=== PATIENT | female | born 1955 | race Caucasian/White ===

== ENCOUNTER 2019-11-07 21:41 | Inpatient (IN) | payer MEDICARE, SELFPAY ==
--- NOTE | ~2019-11-07 | XR_ITS ---
EXAMINATION: XR abdomen NG/feed tube rechec DATE: 11/08/2019 01:16 INDICATION: Nasogastric tube placement. TECHNIQUE: An upright view of the abdomen was obtained. COMPARISON: Abdomen single view at 12:21 AM FINDINGS: The lower abdomen is excluded. There are multiple dilated loops of small bowel. The nasogas tric tube tip is in the hiatal hernia above the diaphragm. IMPRESSION: 1. Nasogastric tube tip in a hiatal hernia above the diaphragm. 2. Small bowel obstruction. Reviewed, dictated and finalized at location A.
--- NOTE | ~2019-11-07 | XR_ITS ---
EXAMINATION: XR abdomen NG/feed tube insert DATE: 11/08/2019 00:21 INDICATION: Nasogastric tube placement. TECHNIQUE: An upright view of the abdomen was obtained. COMPARISON: CT abdomen and pelvis 11/07/2019 FINDINGS: The lower abdomen is excluded. There are multiple dilated loops of small bowel. The nasogas tric tube tip is in a hiatal hernia above the diaphragm. IMPRESSION: 1. Nasogastric tube tip in a hiatal hernia above the diaphragm. 2. Small bowel obstruction. Reviewed, dictated and finalized at location A.
--- NOTE | ~2019-11-07 | XR_ITS ---
EXAMINATION: XR abdomen obstructive series DATE: 11/08/2019 05:52 INDICATION: Small bowel obstruction. TECHNIQUE: Upright and supine views of the abdomen were obtained. COMPARISON: CT abdomen and pelvis 11/07/2019 FINDINGS: There are multiple dilated loops of small bowel. There is a small volume of stool in the co marianela, which is normal in caliber. No free intraperitoneal gas. The nasogastric tube tip is in a hiatal hernia above the diaphragm. There is a right hip arthroplasty. IMPRESSION: 1. Persistently dilated small bowel, consistent with small bowel obstruction. 2. Nasogastric tube tip in a hiatal hernia above the diaphragm. Reviewed, dictated and finalized at location A.
--- NOTE | ~2019-11-07 | XR_ITS ---
EXAMINATION: XR fl guid NG/feed tube insert DATE: 11/08/2019 09:43 INDICATION: Small bowel obstruction. TECHNIQUE: I adjusted the nasogastric tube under fluoroscopic guidance. One fluoroscopic image was ob tained. The fluoroscopy exposure time was 6.8 minutes. The dose area product was 13.566 Gy-cm^2. COMPARISON: CT abdomen and pelvis 11/07/2019 FINDINGS: There is a large hiatal hernia. The nasogastric tube tip is in the hiatal hernia above the diaphragm. IMPRESSION: 1. Large hiatal hernia with nasogastric tube tip in the hiatal hernia above the diaphragm. I was not able to pass the nasogastric tube beyond the diaphragm. Reviewed, dictated and finalized at location A.
--- NOTE | ~2019-11-07 | XR_ITS ---
XR abdomen/kub 1V 11/11/2019 13:36 Indication: Abdomen pain. Postop. Procedure: KUB Comparison: Comparison to multiple prior studies sequentially, with oldest reviewed study dated 01/15. Findings: NG tube in the stomach. There are mildly dilated small bowel loops in the central aspect of the abdomen. There is laparotomy staple line. No renal stones identified. There are pelvic phlebolit hs. There is a right hip arthroplasty. Impression: 1: Mildly dilated small bowel loops centrally, most likely postoperative ileus. Reviewed, dictated and finalized at location A. Impression: 1: Mildly dilated small bowel loops centrally, most likely postoperative ileus.
--- NOTE | ~2019-11-07 | CT_ITS ---
EXAMINATION: CT abdomen pelvis w con DATE: 11/13/2019 16:00 INDICATION: Abdominal pain. Nausea and vomiting. TECHNIQUE: Computed tomography (CT) of the abdomen and pelvis was performed with 100 mL Omnipaque 350 intravenous contrast. Automated exposure control and iterative reconstruction technique were employe d. The dose-length product was 275.51 mGy-cm. COMPARISON: CT abdomen and pelvis 11/07/2019 FINDINGS: The visualized portions of the lung bases demonstrate small pleural effusions. There is mil d dependent atelectasis bilaterally. The heart size is normal. There is a small pericardial effusion. There is a large sliding hiatal hernia. The nasogastric tube tip is in the body of the stomach below the diaphragm. There are cysts in the liver measuring up to 1.1 cm. There is a 3.6 cm mass in left h epatic lobe with interrupted peripheral puddling of contrast, consistent with a hemangioma. The gallb ladder is normal in size and contains a stone. The spleen is normal. Pancreas divisum is noted. The a drenal glands and kidneys are normal. There is wall thickening throughout the colon and involving mos t of the small bowel. The wall thickening is worst involving the small bowel proximal to the anastomo sis. There are some dilated loops of small bowel without focal transition point. There are no patholo gically enlarged lymph nodes. There is a small volume of ascites. There is a right hip arthroplasty. There is lumbar levocurvature and severe spondylosis. IMPRESSION: 1. Dilated small bowel without focal transition point, consistent with adynamic ileus. 2. Wall thickening of small and large bowel, worst proximal to the small bowel anastomosis, consisten t with edema and/or inflammation. 3. Large sliding hiatal hernia. 4. Small volume of ascites. 5. Small pleural effusions. 6. Small pericardial effusion. Reviewed, dictated and finalized at location A. IMPRESSION: 1. Dilated small bowel without focal transition point, consistent with adynamic ileus. 2. Wall thickening of small and large bowel, worst proximal to the small bowel anastomosis, consistent with edema and/or inflammation. 3. Large sliding hiatal hernia. 4. Small volume of ascites. 5. Small pleural effusions. 6. Small pericardial effusion.
--- NOTE | ~2019-11-07 | CT_ITS ---
EXAMINATION: CT abdomen pelvis w con DATE: 11/07/2019 22:50 INDICATION: Abdominal pain TECHNIQUE: Computed tomography (CT) of the abdomen and pelvis was performed with 100 mL Omnipaque-350 intravenous contrast. Automated exposure control and iterative reconstruction technique were employe d. The dose-length product was 265.01 mGy-cm. COMPARISON: 01/14/2018 FINDINGS: Mild dependent atelectasis in the bilateral lower lobes. Moderate-sized sliding-type hiatal hernia. P eripheral puddling of contrast at a 4 cm cavernous hemangioma in the left hepatic lobe. There are cou ple smaller low-attenuation hepatic cyst. Gallbladder, spleen, pancreas, bilateral adrenal glands and kidneys are normal. Dilation of numerous loops of small bowel throughout the abdomen and pelvis abiodun uring up to 3.5 cm in maximal diameter. There is severe feces scattered throughout the dilated small bowel including medially proximal to the transition point in the right hemipelvis. There is appears t o be edematous wall thickening of the decompressed small bowel immediately distal to the transition p oint. Moderate amount of stool throughout the proximal colon. The distal colon is decompressed. Small amount of ascites scattered throughout the abdomen and pelvis. Bladder is normal. The uterus is not identified and has likely been surgically resected. Right total hip arthroplasty. Moderate left hip o steoarthritis. Severe spondylosis at the lumbosacral junction. IMPRESSION: 1. Small bowel obstruction with wall thickening in the distal ileum immediately distal to the transit ion point which could represent a scarring and chronic stricture or acute enteritis either infectious , inflammatory or less likely ischemic in etiology. 2. Likely reactive small amount of ascites scattered throughout the abdomen and pelvis. 3. Moderate-sized sliding-type hiatal hernia. Reviewed, dictated and finalized at location A. IMPRESSION: 1. Small bowel obstruction with wall thickening in the distal ileum immediately distal to the transition point which could represent a scarring and chronic st ricture or acute enteritis either infectious, inflammatory or less likely ische kashif in etiology. 2. Likely reactive small amount of ascites scattered throughout the abdomen and pelvis. 3. Moderate-sized sliding-type hiatal hernia.
[2019-11-07 21:38] VITALS: BP 166/98; PULSE 67; RESP 18; TEMP 36.9; O2SAT 94
--- NOTE | 2019-11-07 21:47 | ED.ABDPAIN ---
HPI - Abdominal Pain General Chief Complaint: Abdominal Pain Stated Complaint: abd pain Source: RN notes reviewed History of Present Illness HPI narrative: Patient presents emergency department from home for abdominal pain. Patient states that symptoms began yesterday. Pain is located diffusely throughout the abdomen and is described as sharp and stabbing in nature does not radiate. Associated with nausea and vomiting denies any fevers or chills chest pain shortness of breath or any other symptoms. Patient was given Zofran in route by EMS states she has a history of bowel obstruction feels similar Related Data Home Medications Medication Instructions Recorded Confirmed bupropion HCl [Wellbutrin XL] 300 mg PO QAM 11/07/19 divalproex [Depakote ER] 250 mg PO 11/07/19 levothyroxine 25 mcg PO DAILY 11/07/19 ropinirole 1,000 mg PO DAILY 11/07/19 topiramate [Topamax] 100 mg PO DAILY 11/07/19 valacyclovir [Valtrex] 1,000 mg PO DAILY 11/07/19 sumatriptan succinate [Imitrex 6 mg SUBCUT ONCE PRN 11/08/19 STATdose Pen] Allergies Allergy/AdvReac Type Severity Reaction Status Date / Time codeine Allergy Severe Gastrointestinal Verified 11/07/19 23:54 Upset Sulfa (Sulfonamide Allergy Intermediate Hives Verified 11/07/19 23:54 Antibiotics) Review of Systems Review of Systems: Narrative: Gen.: Denies fevers or chills ENT: Denies congestion Respiratory: Denies shortness of breath or cough CV: Denies chest pain or palpitations GI: See HPI denies burning, urgency, frequency or hematuria Musculoskeletal: Denies back pain or muscle pain Neuro: Denies numbness, tingling, weakness or focal weakness Skin: Denies rash Except as documented, all other systems reviewed and negative PMF Past Medical History Medical History (Updated 11/08/19 @ 01:59 by Mina Iraheta DO) Migraine headache Surgical History Surgical History (Updated 11/07/19 @ 21:48 by Mina Iraheta DO) History of hysterectomy Social History Social History Smoking status: Never smoker Alcohol intake: current Exam Narrative: Exam Narrative: APPEARANCE: No acute distress, nontoxic, resting in bed EYES: EOMI HEENT: Normocephalic, atraumatic, OMM RESPIRATORY: No respiratory distress Clear to auscultation bilaterally with no rhonchi wheezing or rales. CARDIOVASCULAR: Regular rate and rhythm without murmurs rubs or gallops. ABDOMINAL: Soft, nondistended, diffusely tender to palpation, no rebound or guarding MUSCULOSKELETAl: Moves all extremities. No clubbing, cyanosis or edema. NEURO: Awake and alert. Following commands, speech normal, no focal deficits SKIN:: Warm, dry. No rashes lesions or abrasions PSYCHIATRIC: Normal affect/mood, Course Course Emergency Course: Discussed with Dr. Crabtree for general surgery agrees with consult at this time agrees with plan for NG tube and Zosyn will follow as inpatient Discussed with Dr. Pink presentation and work-up. Agrees with admission at this time Discussed with patient and family results of workup and diagnosis. Discussed need for admission. Patient and family understand and agree to current treatment plan Patient with NG tube placed both x-rays show coiling and what appears to be a hiatal hernia I [facility] states that both are in the hiatal hernia can be used for suction Vital Signs Vital signs: Vital Signs Temperature 98.4 F 11/07/19 21:38 Pulse Rate 67 11/07/19 21:38 Respiratory Rate 18 11/07/19 21:38 Blood Pressure 166/98 H 11/07/19 21:38 Pulse Oximetry 94 11/07/19 21:38 Temperature 98.0 F 11/07/19 23:50 Pulse Rate 84 11/07/19 23:50 Respiratory Rate 18 11/07/19 23:50 Blood Pressure 165/102 H 11/07/19 23:50 Pulse Oximetry 100 11/07/19 23:50 MDM - Abdominal Pain Lab Data Result diagrams: 11/07/19 21:50 11/07/19 21:50 Labs: Lab R
[2019-11-07] MEDS: SODIUM CHLORIDE 0.9% IV 1,000 ML 999 ML IV CONT (21:50)
[2019-11-07] MEDS: MORPHINE SULFATE 4 MG/ML INJ IV PUSH ×2 (21:53→23:23)
[2019-11-07 22:08] LABS: Basophils Absolute Auto 0.1 K/mm3 (0.0-0.1); Basophils Percent Auto 0.4 % (0.2-1.2); Eosinophils Absolute Auto 0.9 K/mm3 (0-0.3); Eosinophils Percent Auto 4.5 % (0-4.4); Hematocrit 46.4 % (37.0-47.0); Hemoglobin 15.1 g/dL (12.0-15.0); Immature Granulocyte Absolute 0.07 K/mm3 (0.00-0.031); Immature Granulocyte Percent A 0.4 % (0-0.5); Lymphocytes Absolute Auto 1.74 K/mm3 (0.9-3.2); Lymphocytes Percent Auto 8.9 % (18.3-44.2); Mean Corpuscular HGB Conc 32.5 g/dl (32-36); Mean Corpuscular Hemoglobin 29.5 pg (26-34); Mean Corpuscular Volume 90.6 fl (80-100); Mean Platelet Volume 10.2 fl (7.4-10.4); Monocytes Percent Auto 5.3 % (2.6-8.5); Neutrophils Absolute Auto 15.7 K/mm3 (1.3-6.7); Neutrophils Percent Auto 80.5 % (45.5-73.1); Platelet Count Result 276 k/mm3 (150-375); Red Blood Count 5.12 M/mm3 (4.2-5.4); White Blood Count 19.5 K/mm3 (4.5-10.0)
[2019-11-07 22:18] LABS: Lactic Acid Reflex 1.2 mmol/L (0.7-2.1)
[2019-11-07 22:19] LABS: Alanine Aminotransferase 14 U/L (4-35); Albumin Level 4.3 g/dL (3.5-5.1); Alkaline Phosphatase 57 U/L (38-126); Aspartate Amino Transferase 22 U/L (14-36); Bilirubin,Total 0.2 mg/dL (0.2-1.3); Blood Urea Nitrogen 13 mg/dL (7-17); Calcium 8.9 mg/dL (8.4-10.2); Carbon Dioxide 21 mmol/L (22-30); Chloride 108 mmol/L (98-107); Estimated CRCL calculation 47 ml/min; Estimated Glomerular Filt Rate > 60; Glucose 104 mg/dL (65-105); Lipase 269 U/L (23-300); Potassium 3.5 mmol/L (3.4-5.0); Sodium 138 mmol/L (137-145)
[2019-11-07 22:21] LABS: INR 0.9
[2019-11-07 22:23] LABS: Partial Thromboplastin Time 23.3 SECONDS (22.3-36.8)
[2019-11-07] MEDS: ONDANSETRON INJ 4 MG/2 ML VIAL IV PUSH (23:22)
[2019-11-07] MEDS: PANTOPRAZOLE SODIUM IV 40 MG VIAL IV PUSH (23:25)
[2019-11-07] MEDS: BENZOCAINE/TETRACAINE SPRAY (*SP) 56 ML AEROSOL 1 SPRAY (23:35)
[2019-11-07] MEDS: LIDOCAINE HCL 2% GEL UROJET 10 ML PKG (23:35)
[2019-11-07 23:50] VITALS: BP 165/102; PULSE 84; RESP 18; TEMP 36.7; O2SAT 100
[2019-11-08] VITALS (15 sets, daily range): BP systolic 90–165; BP diastolic 59–85; PULSE 73–125; RESP 13–20; TEMP 36.2–37.9; O2SAT 92–100; BMI 20.8
[2019-11-08 01:25] LABS: Add Urine Microscopic? YES; Appearance Urine Clear (Clear); Bilirubin Urine Negative (Negative); Blood Urine Negative (Negative); Color Urine Amber (Yellow); Glucose Urine UA Negative (Negative); Ketones Urine Negative (Negative); Leukocyte Esterase Ur Negative LEU/UL (Negative); Nitrate Urine Positive (Negative); Protein Urine Negative (Negative); RBC Urine 0-2 /hpf (0-2); Squamous Epithelial Cell Urine Few /hpf (Few); Urobilinogen Urine Negative mg/dL (<2.0); WBC Urine 0-3 /hpf
[2019-11-08 01:31] LABS: Specific Grav Ur 1.059 (1.001-1.035)
--- NOTE | 2019-11-08 01:58 | ADMGEN ---
This patient, Linda Jacome, was admitted to [facility] Surg Room 313-01. Patient/family oriented to hospital policies and general routines including ID bracelet, bed and alarms, visiting hours, pain management, procedures, bathroom and other care routines, personal items, smoking policy, room service/diet, and visiting hours. Valuables list has been completed. Information on how to activate the Rapid Response Team has been discussed. Patient/Family are encouraged to report perceived risks to care and to ask questions if they do not understand what they are told or what they should do.
--- NOTE | 2019-11-08 02:59 | PM.IMHP ---
H&P: HPI History of Present Illness Chief complaint: Abdominal pain w/ nausea and vomiting++ Narrative: This is a 64 year old female with known history of previous bowel obstructions who [facility] a complaint of diffuse abdominal pain w/ associated nausea and vomiting that started yesterday. She remarks that she has had similar symptoms in the past when she has had previous bowel obstructions. She denies any fevers, chills, shortness of breath, cough, chest pain, dysuria, hematuria, diarrhea or rectal bleeding. Her last bowel movement was yesterday. She hasn't eaten anything for over a day now. The patient was evaluated in the ER and routine labs demonstrated a WBC of 19,500. CT abd/pelvis demonstrated a small bowel obstruction with wall thickening in the distal ileum immediately distal to the transition point which could represent a scarring and chronic stricture or acute enteritis either infectious, inflammatory or less likely ischemic in etiology. NG tube was placed in the ER and General surgery was consulted by ER provider. The patient was started on wide spectrum IV antibiotics and the patient has been admitted for further care. Review of Systems Review of Systems: All systems reviewed & are unremarkable except as noted in HPI and below PMFSH Past Medical History Medical History (Updated 11/08/19 @ 03:08 by Esau Pink MD) Depression Hypothyroidism Migraine headache RLS (restless legs syndrome) Surgical History Surgical History History of hysterectomy Family History Family History Other Unknown family medical history Social History Social History Smoking status: Never smoker Alcohol intake: never Substance use: never Substance use type: does not use Gender identity (if verbalized by the patient): Female Spiritual care concerns: No Meds Home Medications and Allergies Home Medications Medication Instructions Recorded Confirmed Type baclofen 10 mg tablet 10 mg PO BID PRN #60 tablet 08/12/19 11/08/19 Rx bupropion HCl [Wellbutrin XL] 300 mg PO QAM 11/07/19 11/08/19 History divalproex [Depakote ER] 250 mg PO DAILY 11/07/19 11/08/19 History levothyroxine 25 mcg PO DAILY 11/07/19 11/08/19 History ropinirole 1,000 mg PO DAILY 11/07/19 11/08/19 History topiramate [Topamax] 100 mg PO DAILY 11/07/19 11/08/19 History valacyclovir [Valtrex] 1,000 mg PO DAILY 11/07/19 11/08/19 History sumatriptan succinate [Imitrex 6 mg SUBCUT ONCE PRN 11/08/19 11/08/19 History STATdose Pen] Allergies Allergy/AdvReac Type Severity Reaction Status Date / Time codeine Allergy Severe Gastrointestinal Verified 11/07/19 23:54 Upset Sulfa (Sulfonamide Allergy Intermediate Hives Verified 11/07/19 23:54 Antibiotics) Vital Signs Vital Signs - 24 hr 11/07/19 21:38 11/07/19 23:50 Temperature 36.9 C 36.7 C Pulse Rate 67 84 Respiratory Rate 18 18 Blood Pressure 166/98 H 165/102 H Pulse Oximetry 94 100 Exam Const: General: cooperative, alert and awake Nutritional Appearance: well nourished Orientation/consciousness: patient oriented x3 HENMT: Head: normal to inspection General nose exam: Normal external nose present Face and sinus: normal facial exam Mouth: Yes Normal oral and palatal mucosa present and Yes oropharynx normal Eyes: Pupils: Equal, round and reactive pupils present EOM: EOMs intact bilaterally Neck: Neck: supple and no JVD Thyroid: thyroid normal Lymphatic: lymphadenopathy not noted Resp: Effort & Inspection: normal respiratory effort Auscultation: clear to auscultation bilaterally Cardio: Rate: regular rate Rhythm: regular rhythm Heart sounds: no murmurs GI: Inspection: normal to inspection GI Palp: Yes abdominal tenderness (Diffuse abd tenderness w/ palpation++), No Hepatomega
[2019-11-08] MEDS: SODIUM CHLORIDE 0.9% IV 1,000 ML 125 ML IV CONT (04:28)
[2019-11-08] MEDS: MORPHINE SULFATE 4 MG/ML INJ IV PUSH ×4 (04:30→20:37)
[2019-11-08] MEDS: ONDANSETRON INJ 4 MG/2 ML VIAL IV PUSH ×3 (04:30→18:14)
[2019-11-08 05:59] LABS: Basophils Absolute Auto 0.1 K/mm3 (0.0-0.1); Basophils Percent Auto 0.3 % (0.2-1.2); Hematocrit 52.8 % (37.0-47.0); Hemoglobin 17.1 g/dL (12.0-15.0); Immature Granulocyte Absolute 0.11 K/mm3 (0.00-0.031); Immature Granulocyte Percent A 0.6 % (0-0.5); Lymphocytes Absolute Auto 1.86 K/mm3 (0.9-3.2); Lymphocytes Percent Auto 10.2 % (18.3-44.2); Mean Corpuscular HGB Conc 32.4 g/dl (32-36); Mean Corpuscular Hemoglobin 29.5 pg (26-34); Mean Corpuscular Volume 91.2 fl (80-100); Mean Platelet Volume 10.3 fl (7.4-10.4); Monocytes Percent Auto 5.5 % (2.6-8.5); Neutrophils Absolute Auto 15.3 K/mm3 (1.3-6.7); Neutrophils Percent Auto 83.4 % (45.5-73.1); Platelet Count Result 323 k/mm3 (150-375); Red Blood Count 5.79 M/mm3 (4.2-5.4); Red Cell Distribution Width 13.3 % (11.5-14.5); White Blood Count 18.3 K/mm3 (4.5-10.0)
[2019-11-08 06:10] LABS: Blood Urea Nitrogen 13 mg/dL (7-17); Calcium 9.2 mg/dL (8.4-10.2); Carbon Dioxide 20 mmol/L (22-30); Chloride 108 mmol/L (98-107); Estimated CRCL calculation 47 ml/min; Estimated Glomerular Filt Rate > 60; Glucose 149 mg/dL (65-105); Potassium 3.7 mmol/L (3.4-5.0); Sodium 138 mmol/L (137-145)
[2019-11-08] MEDS: LEVOTHYROXINE SODIUM INJ 100 MCG/5 ML VIAL 12.5 MCG IV PUSH (08:13)
--- NOTE | 2019-11-08 10:17 | PM.CNGS ---
Assessment and Plan Assessment and plan (1) Small bowel obstruction: Code(s): K56.609 - Unspecified intestinal obstruction, unspecified as to partial versus complete obstruction Status: Acute Assessment and Plan: exam concerning c vol guarding, diffuse TTP, WBC 18 K, will take to OR for ex lap, risks, benefits, alternatives d/w pt and she would like to proceed, cont resus (2) Hiatal hernia: Code(s): K44.9 - Diaphragmatic hernia without obstruction or gangrene Status: Acute Assessment and Plan: unable to pass NG, will try to manually position in OR History of Present Illness Consult details Consult date: 11/08/19 Reason for consult: abdominal pain Requesting physician: Esau Pink MD Narrative: Pt is a 64 y/o F presenting to ED c/o diffuse, crampy abd pain, intractable N/V, anorexia over last 2-3 days. Pt reports sx are becoming progressively worse. Pt reports she had BM yesterday but cont to have severe sx. Pt reports previous history of SBO requiring admission but this is worst episode. Pt denies f/c, SOB. Pt c previous hysterectomy. Review of Systems Constitutional: Constitutional: Reports anorexia, Denies chills, Reports fatigue, Denies headache(s), Denies malaise, Reports poor appetite, Denies weight gain and Denies weight loss Eyes: Eyes: Reports no additional eye complaints and Denies loss of vision ENT: Reports Normal hearing present, Denies dysphagia, Denies headache(s), Denies hearing loss and Denies sore throat Cardiovascular: Cardiovascular: Denies chest pain, Denies syncope, Denies irregular heart rhythm, Denies leg edema, Denies palpitations and Denies dyspnea Respiratory: Respiratory: Denies cough and Denies dyspnea Gastrointestinal: Gastrointestinal: Reports abdominal pain, Reports bloating, Denies change in bowel habits, Denies change in stool character, Denies constipation, Denies dysphagia, Reports heartburn, Denies diarrhea, Reports nausea and Reports vomiting Genitourinary: Genitourinary: Denies urinary frequency, Denies dysuria and Denies urinary urgency Musculoskeletal: Musculoskeletal: Denies myalgias, Denies arthralgias and Denies muscle cramps Integumentary/Breasts: Skin/Breast: Denies non-healing lesions and Denies rash Neurologic: Denies syncope, Denies headache(s) and Denies loss of vision Endocrine: Endocrine: Denies change in body appearance and Denies fatigue Hematologic/Lymphatic: Hematologic/Lymphatic: Denies easy bleeding, Denies easy bruising and Denies lymphadenopathy PMFSH Past Medical History Medical History Depression Hypothyroidism Migraine headache RLS (restless legs syndrome) Surgical History Surgical History History of hysterectomy Family History Family History Other Unknown family medical history Social History Social History Smoking status: Never smoker Alcohol intake: never Substance use: never Substance use type: does not use Gender identity (if verbalized by the patient): Female Spiritual care concerns: No Meds Home Medications and Allergies Home Medications Medication Instructions Recorded Confirmed Type baclofen 10 mg tablet 10 mg PO BID PRN #60 tablet 08/12/19 11/08/19 Rx bupropion HCl [Wellbutrin XL] 300 mg PO QAM 11/07/19 11/08/19 History divalproex [Depakote ER] 250 mg PO DAILY 11/07/19 11/08/19 History levothyroxine 25 mcg PO DAILY 11/07/19 11/08/19 History ropinirole 1,000 mg PO DAILY 11/07/19 11/08/19 History topiramate [Topamax] 100 mg PO DAILY 11/07/19 11/08/19 History valacyclovir [Valtrex] 1,000 mg PO DAILY 11/07/19 11/08/19 History sumatriptan succinate [Imitrex 6 mg SUBCUT ONCE PRN 11/08/19 11/08/19 History STATdose Pen] Allergies Allergy/AdvReac Type Severity R
--- NOTE | 2019-11-08 12:35 | PC.NURSE ---
To OR via bed.
[2019-11-08] MEDS: LACTATED RINGERS 1,000 ML 30 ML IV CONT ×4 (12:55→16:20)
--- NOTE | 2019-11-08 12:58 | WPDANESEPPF ---
Anes - Initial Pre Proc Eval Procedure: Operation Date: 11/08/19 13:30 Proposed Procedures p Exploratory Laparotomy, Possible Bowel Resection, Possible Ostomy - Lisa Crabtree MD Date/Time: 11/08/19 12:58 Surgeon: Esau Pink MD Pre Op Diagnosis: Abdominal pain w/ nausea and vomiting++ Patient Data Age: 64 Gender: F Height: 5 ft 4 in Weight: 55 kg Last Vital Signs Temp 97.9 F 11/08/19 12:54 Pulse 104 H 11/08/19 12:54 Resp 16 11/08/19 12:54 BP 139/85 11/08/19 12:54 Pulse Ox 96 11/08/19 12:54 Allergies Allergy/AdvReac Type Severity Reaction Status Date / Time codeine Allergy Severe Gastrointestinal Verified 11/07/19 23:54 Upset Sulfa (Sulfonamide Allergy Intermediate Hives Verified 11/07/19 23:54 Antibiotics) Home Medications Medication Instructions Recorded Confirmed Type baclofen 10 mg tablet 10 mg PO BID PRN #60 tablet 08/12/19 11/08/19 Rx bupropion HCl [Wellbutrin XL] 300 mg PO QAM 11/07/19 11/08/19 History divalproex [Depakote ER] 250 mg PO DAILY 11/07/19 11/08/19 History levothyroxine 25 mcg PO DAILY 11/07/19 11/08/19 History ropinirole 1,000 mg PO DAILY 11/07/19 11/08/19 History topiramate [Topamax] 100 mg PO DAILY 11/07/19 11/08/19 History valacyclovir [Valtrex] 1,000 mg PO DAILY 11/07/19 11/08/19 History sumatriptan succinate [Imitrex 6 mg SUBCUT ONCE PRN 11/08/19 11/08/19 History STATdose Pen] Laboratory Tests 11/07/19 11/07/19 11/07/19 21:49 21:50 21:50 WBC 19.5 K/mm3 H K/mm3 (4.5-10.0) RBC 5.12 M/mm3 M/mm3 (4.2-5.4) Hgb 15.1 g/dL H g/dL (12.0-15.0) Hct 46.4 % % (37.0-47.0) MCV 90.6 fl fl (80-100) MCH 29.5 pg pg (26-34) MCHC 32.5 g/dl g/dl (32-36) RDW 13.0 % % (11.5-14.5) Plt Count 276 k/mm3 k/mm3 (150-375) MPV 10.2 fl fl (7.4-10.4) Immature Gran % (Auto) 0.4 % % (0-0.5) Neut % (Auto) 80.5 % H % (45.5-73.1) Lymph % (Auto) 8.9 % L % (18.3-44.2) [place] % (Auto) 5.3 % % (2.6-8.5) Eos % (Auto) 4.5 % H % (0-4.4) Baso % (Auto) 0.4 % % (0.2-1.2) Lymph # (Auto) 1.74 K/mm3 K/mm3 (0.9-3.2) [place] # (Auto) 1.0 K/mm3 H K/mm3 (0.1-0.6) Eos # (Auto) 0.9 K/mm3 H K/mm3 (0-0.3) Baso # (Auto) 0.1 K/mm3 K/mm3 (0.0-0.1) Abs Immat Gran (auto) 0.07 K/mm3 H K/mm3 (0.00-0.031) Absolute Neuts (auto) 15.7 K/mm3 H K/mm3 (1.3-6.7) Absolute Nucleated RBC 0.0 K/mm3 K/mm3 (0.0-0.012) Nucleated RBC % 0.0 % % (0.0-0.2) PT 12.0 Seconds Seconds (11.1-14.7) INR 0.9 APTT 23.3 SECONDS SECONDS (22.3-36.8) Sodium 138 mmol/L mmol/L (137-145) Potassium 3.5 mmol/L mmol/L (3.4-5.0) Chloride 108 mmol/L H mmol/L (98-107) Carbon Dioxide 21 mmol/L L mmol/L (22-30) BUN 13 mg/dL mg/dL (7-17) Creatinine 0.90 mg/dL mg/dL (0.7-1.0) Estim Creat Clear Calc 47 ml/min ml/min Estimated GFR > 60 (59 - ) Glucose 104 mg/dL mg/dL (65-105) Lactic Acid Calcium 8.9 mg/dL mg/dL (8.4-10.2) Total Bilirubin 0.2 mg/dL mg/dL (0.2-1.3) AST 22 U/L U/L (14-36) ALT 14 U/L U/L (4-35) Alkaline Phosphatase 57 U/L U/L (38-126) Total Protein 8.0 g/dL g/dL (6.3-8.2) Albumin 4.3 g/dL g/dL (3.5-5.1) Lipase 269 U/L U/L (23-300) Urine Color Urine Appearance Urine pH Ur Specific [place] Urine Protein Urine Glucose (UA) Urine Ketones Ur Blood (Man) Urine Nitrate Urine Bilirubin Urine Urobilinogen Leukocyte Esterase Rfl Urine RBC Urine WBC Ur
--- NOTE | 2019-11-08 14:35 | PM.PROC ---
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 After adequate induction of general anesthesia, the patient was prepped and draped in normal sterile fashion. A time-out was then done to verify the patient's identity as well as the procedure being performed. I began by making a generous midline incision around the umbilicus. This incision was carried into the peritoneal cavity. Once in the peritoneal cavity, a large amount of ascites was noted. I began by suctioning out the ascites. I then began to assess the small bowel, which was noted to be very dilated proximal. Upon running the small bowel distally it was noted that the patient had a dense amount of adhesions in the right lower quadrant. I began by doing an extensive lysis of adhesions in this area and was able to free up the small bowel in this area. Once this was done it was noted there is a focal transition point in the ileum. The bowel distal to this area was decompressed. There was also noted to be large particles of what was ultimately noted to be food proximal to this area. I did make an enterotomy proximal to this area at this point to decompress the small bowel and to remove these large particles of food bezoars. Once the small bowel was decompressed, I ended up doing a small-bowel resection to include the area of the enterotomy and also the area of the stricture. This was noted to be approximately 2 feet and will be sent to pathology for further review. I then performed a [id number] functional end-to-end anastomosis between the 2 ends ileum with a 55 NATHAN stapler followed by a TL 60 stapler. I then closed the mesenteric defect with a running 3 silk suture and staple lines were imbricated with 3 0 silk sutures. The anastomosis was noted to be widely patent and tension free. I then ran the entirety of the small bowel once again and noted no other pathology. I then ran the colon which was noted to be somewhat dilated but unremarkable. At this point we copiously irrigated the abdomen. I then closed the fascia with a looped PDS suture. The skin was closed skin karla. Sterile dressing was then placed on the wound. The patient tolerated the procedure well was extubated in the operating room postoperatively and will be sent to recovery in stable condition. Anesthesia: GETA Surgeon: Lisa Crabtree MD Estimated blood loss (mL): 20 Drains: No Packing: No Pathology: yes Complications: No immediate complications Condition: stable Disposition: PACU Findings: focal stricture ileum, food bezoar
[2019-11-08] MEDS: HYDROMORPHONE HCL 1 MG/ML INJ IV PUSH (16:12)
--- NOTE | 2019-11-08 16:40 | PC.NURSE ---
Back from OR via bed.
--- NOTE | 2019-11-08 16:56 | PM.IMPN ---
Progress Note: A&P Assessment and Plan (1) Small bowel obstruction: Code(s): K56.609 - Unspecified intestinal obstruction, unspecified as to partial versus complete obstruction Status: Acute Assessment and Plan: Management per general surgery. She is POD#0 adhesiolysis and small bowel resection by Dr Crabtree this afternoon. She presented with acute abdominal pain, nausea, vomiting. Symptoms severe and trouble placing the NG, taken to OR for ex lap. Leukocytosis, unclear if wall thickening just reactive or secondary to infection thus she remains on Zosyn today. Repeat CBC and monitor electrolytes. (2) RLS (restless legs syndrome): Code(s): G25.81 - Restless legs syndrome Status: Chronic Assessment and Plan: Resume home ropinerole when appropriate. (3) Hypothyroidism: Qualifiers: Hypothyroidism type: unspecified Qualified Code(s): E03.9 - Hypothyroidism, unspecified Code(s): E03.9 - Hypothyroidism, unspecified Status: Chronic Assessment and Plan: Continue Levothryoxine IV. (4) Depression: Qualifiers: Depression Type: unspecified Qualified Code(s): F32.9 - Major depressive disorder, single episode, unspecified Code(s): F32.9 - Major depressive disorder, single episode, unspecified Status: Chronic Assessment and Plan: Resume home meds when possible. Subjective Date/time seen: 11/08/19 16:45 Interval history: Ms. Jacome is a 64yo F admitted for small bowel obstruction. She is seen very shortly after returning from PACU, rates abdominal discomfort /. Denies nausea. She denies any chest pain or shortness of breath. Review of Systems Review of Systems: Narrative: Twelve systems were reviewed with pertinent positives and negatives as per HPI. Exam Narrative: Exam Narrative: General: Female resting supine in bed, general discomfort just getting back from surgery. HEENT: Normocephalic, EOMI, oral mucosa tacky. Cardiovascular: Rate and rhythm are regular. Respiratory: Lungs clear to auscultation all tavares. Non-labored breathing. Abdomen: Soft, non-distended, midline incision is covered with a clean and dry dressing. Extremities: Peripheral pulses intact. No edema. Neuro: No focal neurological deficits. Speech is clear. Objective Data Vital Signs Vital Signs: Last Vital Signs Temp 97.1 F L 11/08/19 15:50 Pulse 101 H 11/08/19 16:18 Resp 13 11/08/19 16:05 BP 119/64 11/08/19 16:18 Pulse Ox 92 11/08/19 16:18 Intake/Output Intake/Output: Intake & Output 11/05/19 11/06/19 11/07/19 11/08/19 23:59 23:59 23:59 23:59 Intake Total 1050 665 Output Total 215 Balance 1050 450 Meds/Results Medications: Active Medications Generic Name Dose Route Start Last Admin Trade Name Freq PRN Reason Stop Dose Admin Hydralazine HCl 10 mg 11/08/19 02:55 Apresoline Hcl Inj IV PUSH 11/10/19 07:00 Q8H PRN see comments Piperacillin/Tazobactam/Dextrose 3.375 gm in 50 mls @ 100 mls/hr 11/08/19 06:00 11/08/19 13:39 Zosyn 3.375 Gm/D5w 50ml Pm IVPB Infused Q6H GATO Infusion Sodium Chloride 1,000 mls @ 100 mls/hr 11/07/19 23:40 11/08/19 16:52 Normal Saline Iv IV CONT 100 mls/hr .Q10H GATO Infusion Levothyroxine Sodium 12.5 mcg 11/08/19 06:30 11/08/19 08:13 Synthroid Inj IV PUSH 12.5 mcg DAILY@0630 GATO Administration Morphine Sulfate 4 mg 11/07/19 23:39 11/08/19 11:41 Morphine Sulfate Inj IV PUSH 4 mg Q2H PRN Administration Pain Rated 7-10 Ondansetron HCl 4 mg 11/07/19 23:39 11/08/19 10:00 Zofran Inj IV PUSH 4 mg Q4H PRN Administration Nausea Radiology Results: ITS Impressions Abdomen/Pelvis CT 11/07/19 23:02 IMPRESSION: 1. Small bowel obstruction with wall thickening in the distal ileum immed
[2019-11-08] MEDS: SODIUM CHLORIDE 0.9% IV 1,000 ML 100 ML IV CONT (20:33)
[2019-11-09] VITALS (8 sets, daily range): BP systolic 121–134; BP diastolic 69–79; PULSE 98–113; RESP 16–20; TEMP 36.4–37.9; O2SAT 91–94
[2019-11-09] MEDS: MORPHINE SULFATE 4 MG/ML INJ IV PUSH ×3 (04:09→10:47)
[2019-11-09] MEDS: SODIUM CHLORIDE 0.9% IV 1,000 ML 100 ML IV CONT ×2 (05:49→21:42)
[2019-11-09] MEDS: LEVOTHYROXINE SODIUM INJ 100 MCG/5 ML VIAL 12.5 MCG IV PUSH (05:54)
[2019-11-09 06:48] LABS: Hematocrit 41.9 % (37.0-47.0); Hemoglobin 13.5 g/dL (12.0-15.0); Mean Corpuscular HGB Conc 32.2 g/dl (32-36); Mean Corpuscular Hemoglobin 29.3 pg (26-34); Mean Corpuscular Volume 91.1 fl (80-100); Mean Platelet Volume 10.7 fl (7.4-10.4); Platelet Count Result 240 k/mm3 (150-375); Red Cell Distribution Width 13.5 % (11.5-14.5); White Blood Count 11.2 K/mm3 (4.5-10.0)
[2019-11-09 07:02] LABS: Alanine Aminotransferase 10 U/L (4-35); Albumin Level 2.9 g/dL (3.5-5.1); Alkaline Phosphatase 32 U/L (38-126); Aspartate Amino Transferase 19 U/L (14-36); Bilirubin,Total 0.5 mg/dL (0.2-1.3); Blood Urea Nitrogen 22 mg/dL (7-17); Carbon Dioxide 21 mmol/L (22-30); Chloride 108 mmol/L (98-107); Estimated CRCL calculation 39 ml/min; Estimated Glomerular Filt Rate 50; Glucose 105 mg/dL (65-105); Magnesium 1.6 mg/dL (1.6-2.3); Phosphorus 3.9 mg/dL (2.5-4.5); Potassium 3.3 mmol/L (3.4-5.0); Sodium 136 mmol/L (137-145)
[2019-11-09 07:46] LABS: Band Neutrophils Percent 28 % (0-6); Lymphocytes Absolute Manual 1.23 K/mm3 (1.1-4.5); Metamyelocytes Percent 2 %; Monocytes Absolute Manual 0.33 K/mm3 (0.1-0.90); Monocytes Percent Manual 3 % (3-9); Neutrophils Percent Manual 56 % (46-73); Total Cells Counted 100
[2019-11-09 07:47] LABS: Hypochromasia 2+ (NORMAL); Platelet Estimate Adequate (Adequate); Stomatocytes 2+ (NORMAL)
--- NOTE | 2019-11-09 08:06 | WPDANESPN ---
Anes - Prog Note Post-Op Date/Time: 11/09/19 08:06 Cardiovascular status: normal Respiratory status: normal Airway patency: baseline Mental status: baseline Post-Op hydration status: normal Vital Signs: Last Vital Signs Temp 37.2 C 11/09/19 06:21 Pulse 112 H 11/09/19 06:21 Resp 18 11/09/19 06:21 BP 127/73 11/09/19 06:21 Pulse Ox 92 11/09/19 06:21 I/O: Intake & Output 11/08/19 11/09/19 11/09/19 23:59 07:59 15:59 Intake Total 1350 1200 Output Total 225 400 Balance 1125 800 Laboratory Tests 11/09/19 05:58 11/09/19 05:58 11/09/19 11/09/19 05:58 05:58 WBC 11.2 H RBC 4.60 Hgb 13.5 D Hct 41.9 MCV 91.1 MCH 29.3 MCHC 32.2 RDW 13.5 Plt Count 240 MPV 10.7 H Immature Gran % (Auto) Not Reportable Neut % (Auto) Not Reportable Lymph % (Auto) Not Reportable Assumption % (Auto) Not Reportable Eos % (Auto) Not Reportable Baso % (Auto) Not Reportable Lymph # (Auto) Not Reportable Assumption # (Auto) Not Reportable Eos # (Auto) Not Reportable Baso # (Auto) Not Reportable Abs Immat Gran (auto) Not Reportable Absolute Neuts (auto) Not Reportable Absolute Nucleated RBC Not Reportable Total Counted 100 Neutrophils % (Manual) 56 Band Neutrophils % 28 H Lymphocytes % (Manual) 11.0 L Monocytes % (Manual) 3 Metamyelocytes % 2 Nucleated RBC % Not Reportable Abs Neuts (Manual) 9.40 H Abs Lymphs (Manual) 1.23 Abs Monocytes (Manual) 0.33 Platelet Estimate Adequate Hypochromasia 2+ Stomatocytes 2+ Sodium 136 L Potassium 3.3 L Chloride 108 H Carbon Dioxide 21 L BUN 22 H Creatinine 1.10 H Estim Creat Clear Calc 39 Estimated GFR 50 L Glucose 105 Calcium 7.0 L Phosphorus 3.9 Magnesium 1.6 Total Bilirubin 0.5 AST 19 ALT 10 Alkaline Phosphatase 32 L Total Protein 5.0 L Albumin 2.9 L Post-procedural complaints: none Patient Feedback: Patient satisfied with anesthetic care.
[2019-11-09] MEDS: MAGNESIUM SULF 2 GM/WATER 50ML 2 GM/50 ML BAG IVPB (08:48)
--- NOTE | 2019-11-09 13:08 | PM.IMPN ---
Progress Note: A&P Assessment and Plan (1) Small bowel obstruction: Code(s): K56.609 - Unspecified intestinal obstruction, unspecified as to partial versus complete obstruction Status: Acute Assessment and Plan: Management per general surgery. She is POD#1 adhesiolysis and small bowel resection by Dr Crabtree 11/07. She presented with acute abdominal pain, nausea, vomiting. Symptoms were severe and trouble placing the NG, taken to OR for ex lap. Leukocytosis improved, febrile overnight; unclear if wall thickening just reactive or secondary to infection thus she remains on Zosyn today. Repeat CBC and monitor electrolytes. (2) RLS (restless legs syndrome): Code(s): G25.81 - Restless legs syndrome Status: Chronic Assessment and Plan: Resume home ropinerole when appropriate. (3) Hypothyroidism: Qualifiers: Hypothyroidism type: unspecified Qualified Code(s): E03.9 - Hypothyroidism, unspecified Code(s): E03.9 - Hypothyroidism, unspecified Status: Chronic Assessment and Plan: Continue Levothryoxine IV. (4) Depression: Qualifiers: Depression Type: unspecified Qualified Code(s): F32.9 - Major depressive disorder, single episode, unspecified Code(s): F32.9 - Major depressive disorder, single episode, unspecified Status: Chronic Assessment and Plan: Resume home meds when possible. Subjective Date/time seen: 11/09/19 12:15 Interval history: Ms. Jacome is a 64yo F admitted for small bowel obstruction. She is having back pain and abdominal pain today. Back pain is chronic. She feels nauseous, no vomiting since NG is in. She denies chest pain or shortness of breath. Review of Systems Review of Systems: Narrative: Twelve systems were reviewed with pertinent positives and negatives as per HPI. Exam Narrative: Exam Narrative: General: Female resting supine in bed, general discomfort. HEENT: Normocephalic, EOMI, oral mucosa tacky. Cardiovascular: Rate and rhythm are regular. Respiratory: Lungs clear to auscultation all tavares. Non-labored breathing. Abdomen: Soft, non-distended, midline incision is covered with dressing, scant drainage. Extremities: Peripheral pulses intact. No edema. Neuro: No focal neurological deficits. Speech is clear. Objective Data Vital Signs Vital Signs: Last Vital Signs Temp 98.2 F 11/09/19 14:00 Pulse 98 11/09/19 14:00 Resp 18 11/09/19 14:00 BP 125/73 11/09/19 14:00 Pulse Ox 92 11/09/19 14:00 Intake/Output Intake/Output: Intake & Output 11/06/19 11/07/19 11/08/19 11/09/19 23:59 23:59 23:59 23:59 Intake Total 1050 1815 1250 Output Total 440 400 Balance 1050 1375 850 Meds/Results Medications: Active Medications Generic Name Dose Route Start Last Admin Trade Name Freq PRN Reason Stop Dose Admin Hydralazine HCl 10 mg 11/08/19 02:55 Apresoline Hcl Inj IV PUSH 11/10/19 07:00 Q8H PRN see comments Piperacillin/Tazobactam/Dextrose 3.375 gm in 50 mls @ 100 mls/hr 11/08/19 06:00 11/09/19 11:58 Zosyn 3.375 Gm/D5w 50ml Pm IVPB 100 mls/hr Q6H GATO Administration Sodium Chloride 1,000 mls @ 100 mls/hr 11/07/19 23:40 11/09/19 05:49 Normal Saline Iv IV CONT 100 mls/hr .Q10H GATO Administration Acetaminophen 1,000 mg in 100 mls @ 400 mls/hr 11/08/19 22:04 11/09/19 06:32 Ofirmev 1,000 Mg Ivpb IVPB 11/09/19 22:05 Infused Q6H PRN Infusion Pain Rated 4-6 or Fever Levothyroxine Sodium 12.5 mcg 11/08/19 06:30 11/09/19 05:54 Synthroid Inj IV PUSH 12.5 mcg DAILY@0630 GATO Administration Morphine Sulfate 4 mg 11/07/19 23:39 11/09/19 10:47 Morphine Sulfate Inj IV PUSH 4 mg Q2H PRN Administration Pain Rated 7-10 Ondansetron HCl 4 mg 11/07/19 23:39 11/08/19 18:14 Zofran Inj I
--- NOTE | 2019-11-09 13:29 | PM.PNGS ---
Progress Note: A&P Assessment and Plan (1) Small bowel obstruction: Code(s): K56.609 - Unspecified intestinal obstruction, unspecified as to partial versus complete obstruction Status: Acute Assessment and Plan: Await return of bowel function Will adjust pain meds to help improve pain control today. Increase activity. Continue NG decompression. (2) Hiatal hernia: Code(s): K44.9 - Diaphragmatic hernia without obstruction or gangrene Status: Acute Subjective Subjective Date/Time Seen: 11/09/19 13:29 Post Op day: 1 Patient reports: still having pain, no flatus and no bowel movement Interval history: Patient complaining of abdominal pain and back pain. Pain meds are not helping much it. Denies any fevers, nausea, or vomiting. No flatus or BM yet. Exam GI: Inspection: other (Scant drainage on dressing) GI Palp: Yes Soft to palpation and Yes Tenderness to palpation present (GI) (Incisional) Auscultation: Hypoactive bowel sounds present Objective Data Vital Signs Vital Signs: Vital Signs - 24 hr 11/08/19 14:38 11/08/19 14:50 11/08/19 15:05 Temperature 36.2 C L Pulse Rate 73 83 86 Respiratory Rate 20 14 15 Blood Pressure 135/63 156/72 H 156/72 H Pulse Oximetry 94 96 100 11/08/19 15:20 11/08/19 15:35 11/08/19 15:50 Temperature 36.2 C L Pulse Rate 83 85 91 Respiratory Rate 15 14 14 Blood Pressure 149/82 H 156/72 H 143/81 H Pulse Oximetry 100 100 97 11/08/19 16:05 11/08/19 16:18 11/08/19 16:40 Temperature Pulse Rate 84 101 H 111 H Respiratory Rate 13 18 Blood Pressure 149/78 H 119/64 113/66 Pulse Oximetry 92 92 95 11/08/19 16:55 11/08/19 17:25 11/08/19 22:02 Temperature 37.9 C H Pulse Rate 112 H 104 H 125 H Respiratory Rate 16 14 18 Blood Pressure 90/59 L 108/68 101/61 Pulse Oximetry 95 96 93 11/08/19 22:23 11/09/19 02:05 11/09/19 04:09 Temperature 37.9 C H 37.9 C H 37.8 C H Pulse Rate 113 H Respiratory Rate 18 Blood Pressure 127/79 Pulse Oximetry 92 11/09/19 06:21 11/09/19 08:39 11/09/19 10:00 Temperature 37.2 C 36.7 C Pulse Rate 112 H 112 H Respiratory Rate 18 18 Blood Pressure 127/73 121/69 Pulse Oximetry 92 92 94 Intake/Output Intake/Output: Intake & Output 11/06/19 11/07/19 11/08/19 11/09/19 23:59 23:59 23:59 23:59 Intake Total 1050 1815 1250 Output Total 440 400 Balance 1050 1375 850 Meds/Results Medications: Active Medications Generic Name Dose Route Start Last Admin Trade Name Freq PRN Reason Stop Dose Admin Hydralazine HCl 10 mg 11/08/19 02:55 Apresoline Hcl Inj IV PUSH 11/10/19 07:00 Q8H PRN see comments Piperacillin/Tazobactam/Dextrose 3.375 gm in 50 mls @ 100 mls/hr 11/08/19 06:00 11/09/19 11:58 Zosyn 3.375 Gm/D5w 50ml Pm IVPB 100 mls/hr Q6H GATO Administration Sodium Chloride 1,000 mls @ 100 mls/hr 11/07/19 23:40 11/09/19 05:49 Normal Saline Iv IV CONT 100 mls/hr .Q10H GATO Administration Ibuprofen 800 mg in 200 mls @ 400 mls/hr 11/09/19 13:30 Caldolor 800 Mg/200 Ml IVPB 11/10/19 07:59 Q6H GATO Levothyroxine Sodium 12.5 mcg 11/08/19 06:30 11/09/19 05:54 Synthroid Inj IV PUSH 12.5 mcg DAILY@0630 GATO Administration Ondansetron HCl 4 mg 11/07/19 23:39 11/08/19 18:14 Zofran Inj IV PUSH 4 mg Q4H PRN Administration Nausea Radiology Results: ITS Impressions Abdomen/Pelvis CT 11/07/19 23:02 IMPRESSION: 1. Small bowel obstruction with wall thickening in the distal ileum immediately distal to the transition point which could represent a scarring and chronic stricture or acute enteritis either infectious, inflammatory or less likely ischemic in etiology. 2. Likely reactive small amount of ascites scattered throughout the abdomen and pelvis. 3. Moderate-sized sliding-type hiatal hernia. Abdomen X-Ray 11/08/19 07:09 IMPRESSION: 1. Nasogastric tube tip in a hiatal hernia above the diaphragm. 2. Small bowel obstr
[2019-11-09] MEDS: HYDROMORPHONE HCL 1 MG/ML INJ IV PUSH ×4 (14:01→21:39)
[2019-11-09] MEDS: IBUPROFEN IV 800 MG/200 ML 800 MG/200 ML BAG 400 MG IVPB ×2 (17:54→23:18)
[2019-11-10] MEDS: HYDROMORPHONE HCL 1 MG/ML INJ IV PUSH ×9 (01:53→22:29)
[2019-11-10] MEDS: IBUPROFEN IV 800 MG/200 ML 800 MG/200 ML BAG 400 MG IVPB ×2 (05:21→12:25)
[2019-11-10] MEDS: SODIUM CHLORIDE 0.9% IV 1,000 ML 100 ML IV CONT ×3 (05:22→21:38)
[2019-11-10] MEDS: LEVOTHYROXINE SODIUM INJ 100 MCG/5 ML VIAL 12.5 MCG IV PUSH (05:26)
[2019-11-10 06:00] VITALS: BP 143/75; PULSE 95; RESP 18; TEMP 36.4; O2SAT 92
[2019-11-10 06:18] LABS: Hematocrit 34.6 % (37.0-47.0); Hemoglobin 10.7 g/dL (12.0-15.0); Mean Corpuscular HGB Conc 30.9 g/dl (32-36); Mean Corpuscular Hemoglobin 28.9 pg (26-34); Mean Corpuscular Volume 93.5 fl (80-100); Mean Platelet Volume 9.9 fl (7.4-10.4); Platelet Count Result 172 k/mm3 (150-375); Red Cell Distribution Width 13.5 % (11.5-14.5); White Blood Count 10.1 K/mm3 (4.5-10.0)
[2019-11-10 06:42] LABS: Blood Urea Nitrogen 14 mg/dL (7-17); Calcium 6.2 mg/dL (8.4-10.2); Carbon Dioxide 23 mmol/L (22-30); Chloride 109 mmol/L (98-107); Estimated CRCL calculation 53 ml/min; Estimated Glomerular Filt Rate > 60; Glucose 80 mg/dL (65-105); Magnesium 2.7 mg/dL (1.6-2.3); Phosphorus 2.5 mg/dL (2.5-4.5); Potassium 3.6 mmol/L (3.4-5.0); Sodium 135 mmol/L (137-145)
[2019-11-10] MEDS: ONDANSETRON INJ 4 MG/2 ML VIAL IV PUSH (08:47)
--- NOTE | 2019-11-10 10:42 | PM.PNGS ---
Progress Note: A&P Assessment and Plan (1) Small bowel obstruction: Code(s): K56.609 - Unspecified intestinal obstruction, unspecified as to partial versus complete obstruction Status: Acute Assessment and Plan: Await return of bowel function Wall out today Increase activity. Continue NG decompression. (2) Hiatal hernia: Code(s): K44.9 - Diaphragmatic hernia without obstruction or gangrene Status: Acute Subjective Subjective Date/Time Seen: 11/10/19 10:42 No BM or flatus yet. Patient is getting up with some assistance. States that she wants to eat or drink something. Pain better controlled today. Exam GI: Inspection: normal to inspection and other (Incision clean, dry, intact with karla) GI Palp: Yes Soft to palpation, Yes Tenderness to palpation present (GI) (Incisional) and No Guarding due to palpation present (GI) Percussion: Yes normal to percussion Auscultation: Hypoactive bowel sounds present Objective Data Vital Signs Vital Signs: Vital Signs - 24 hr 11/09/19 14:00 11/09/19 18:00 11/09/19 22:00 Temperature 36.8 C 36.4 C L 37.0 C Pulse Rate 98 98 106 H Respiratory Rate 18 20 16 Blood Pressure 125/73 134/79 127/69 Pulse Oximetry 92 91 93 11/10/19 06:00 Temperature 36.4 C Pulse Rate 95 Respiratory Rate 18 Blood Pressure 143/75 H Pulse Oximetry 92 Intake/Output Intake/Output: Intake & Output 11/07/19 11/08/19 11/09/19 11/10/19 23:59 23:59 23:59 23:59 Intake Total 1050 1815 3280 2300 Output Total 440 1090 500 Balance 1050 1375 2190 1800 Meds/Results Medications: Active Medications Generic Name Dose Route Start Last Admin Trade Name Freq PRN Reason Stop Dose Admin Hydromorphone HCl 0.5 mg 11/09/19 13:27 Dilaudid Inj IV PUSH Q2H PRN Pain Rated 4-6 Hydromorphone HCl 1 mg 11/09/19 13:27 11/10/19 08:43 Dilaudid Inj IV PUSH 1 mg Q2H PRN Administration Pain Rated 7-10 Piperacillin/Tazobactam/Dextrose 3.375 gm in 50 mls @ 100 mls/hr 11/08/19 06:00 11/10/19 05:52 Zosyn 3.375 Gm/D5w 50ml Pm IVPB Infused Q6H GATO Infusion Sodium Chloride 1,000 mls @ 100 mls/hr 11/07/19 23:40 11/10/19 09:44 Normal Saline Iv IV CONT 100 mls/hr .Q10H GATO Administration Ibuprofen 800 mg in 200 mls @ 400 mls/hr 11/09/19 18:00 11/10/19 05:52 Caldolor 800 Mg/200 Ml IVPB 11/10/19 12:29 Infused Q6H GATO Infusion Levothyroxine Sodium 12.5 mcg 11/08/19 06:30 11/10/19 05:26 Synthroid Inj IV PUSH 12.5 mcg DAILY@0630 GATO Administration Ondansetron HCl 4 mg 11/07/19 23:39 11/10/19 08:47 Zofran Inj IV PUSH 4 mg Q4H PRN Administration Nausea Radiology Results: ITS Impressions Abdomen/Pelvis CT 11/07/19 23:02 IMPRESSION: 1. Small bowel obstruction with wall thickening in the distal ileum immediately distal to the transition point which could represent a scarring and chronic stricture or acute enteritis either infectious, inflammatory or less likely ischemic in etiology. 2. Likely reactive small amount of ascites scattered throughout the abdomen and pelvis. 3. Moderate-sized sliding-type hiatal hernia. Abdomen X-Ray 11/08/19 07:09 IMPRESSION: 1. Nasogastric tube tip in a hiatal hernia above the diaphragm. 2. Small bowel obstruction. NG Tube Placement 11/08/19 09:44 IMPRESSION: 1. Large hiatal hernia with nasogastric tube tip in the hiatal hernia above the diaphragm. I was not able to pass the nasogastric tube beyond the diaphragm. Labs Labs: Laboratory Results - last 24 hr 11/10/19 11/10/19 05:56 05:56 WBC 10.1 H RBC 3.70 L Hgb 10.7 L Hct 34.6 L MCV 93.5 MCH 28.9 MCHC 30.9 L RDW 13.5 Plt Count 172 MPV 9.9 Sodium 135 L Potassium 3.6 Chloride 109 H Carbon Dioxide 23 BUN 14 D Creatinine 0.80 Estim Creat Clear Calc 53 Estimated GFR > 60 Glucose 80 Calcium 6.2 L Phosphorus 2.5 Magnesium 2.7 H Lang
--- NOTE | 2019-11-10 11:52 | PM.IMPN ---
Progress Note: A&P Assessment and Plan (1) Small bowel obstruction: Code(s): K56.609 - Unspecified intestinal obstruction, unspecified as to partial versus complete obstruction Status: Acute Assessment and Plan: Management per general surgery. She is POD#2 adhesiolysis and small bowel resection by Dr Crabtree 11/07. She presented with acute abdominal pain, nausea, vomiting. Symptoms were severe and trouble placing the NG, taken to OR for ex lap. Leukocytosis improved, febrile overnight; unclear if wall thickening just reactive or secondary to infection thus she remains on Zosyn today. Repeat CBC and monitor electrolytes. (2) RLS (restless legs syndrome): Code(s): G25.81 - Restless legs syndrome Status: Chronic Assessment and Plan: Resume home ropinirole when appropriate. (3) Hypothyroidism: Qualifiers: Hypothyroidism type: unspecified Qualified Code(s): E03.9 - Hypothyroidism, unspecified Code(s): E03.9 - Hypothyroidism, unspecified Status: Chronic Assessment and Plan: Continue Levothryoxine IV. (4) Depression: Qualifiers: Depression Type: unspecified Qualified Code(s): F32.9 - Major depressive disorder, single episode, unspecified Code(s): F32.9 - Major depressive disorder, single episode, unspecified Status: Chronic Assessment and Plan: Resume home meds when possible. (5) Gonorrhea: Code(s): A54.9 - Gonococcal infection, unspecified Status: Acute Assessment and Plan: Patient notes she was contacted yesterday by [facility] regarding her visit 10/27/19 notifying her she tested positive for gonorrhea. She described she was having symptoms of vaginal discharge and pain. Received faxed results from that note oscar positive and gonorrhea equivocal abnormal . She describes no new sexual partners and has been with the same partner for 2 years. Restest for gonorrhea and chlamydia pending. Subjective Date/time seen: 11/10/19 1045 Interval history: Ms. Jacome is a 64yo F admitted for small bowel obstruction. She is having back pain and abdominal pain today but may be slightly improved from yesterday, walked in the hallway a bit with nursing last night. Chronic back pain. She has a headache. No nausea today. She denies chest pain or shortness of breath. Review of Systems Review of Systems: Narrative: Twelve systems were reviewed with pertinent positives and negatives as per HPI. Exam Narrative: Exam Narrative: General: Female resting supine in bed, ice pack on head. HEENT: Normocephalic, EOMI, oral mucosa tacky. Cardiovascular: Rate and rhythm are regular. Respiratory: Lungs clear to auscultation all tavares. Non-labored breathing. Abdomen: Soft, non-distended, midline incision is covered with dressing, scant drainage. Extremities: Peripheral pulses intact. No edema. Neuro: No focal neurological deficits. Speech is clear. Objective Data Vital Signs Vital Signs: Last Vital Signs Temp 97.6 F 11/10/19 06:00 Pulse 95 11/10/19 06:00 Resp 18 11/10/19 06:00 BP 143/75 H 11/10/19 06:00 Pulse Ox 92 11/10/19 06:00 Intake/Output Intake/Output: Intake & Output 11/07/19 11/08/19 11/09/19 11/10/19 23:59 23:59 23:59 23:59 Intake Total 1050 1815 3280 2300 Output Total 440 1090 500 Balance 1050 1375 2190 1800 Meds/Results Medications: Active Medications Generic Name Dose Route Start Last Admin Trade Name Freq PRN Reason Stop Dose Admin Hydromorphone HCl 0.5 mg 11/09/19 13:27 Dilaudid Inj IV PUSH Q2H PRN Pain Rated 4-6 Hydromorphone HCl 1 mg 11/09/19 13:27 11/10/19 11:11 Dilaudid Inj IV PUSH 1 mg Q2H PRN Administration Pain Rated 7-10 Piperacillin/Tazobactam/Dextrose 3.375
[2019-11-10 14:00] VITALS: BP 119/57; PULSE 78; RESP 18; TEMP 36.8; O2SAT 90
[2019-11-10 15:52] VITALS: O2SAT 90
[2019-11-10 22:00] VITALS: BP 142/74; PULSE 99; RESP 18; TEMP 37; O2SAT 92
[2019-11-11] MEDS: HYDROMORPHONE HCL 1 MG/ML INJ IV PUSH ×10 (00:29→23:35)
[2019-11-11 05:19] LABS: Hematocrit 32.6 % (37.0-47.0); Hemoglobin 10.4 g/dL (12.0-15.0); Mean Corpuscular HGB Conc 31.9 g/dl (32-36); Mean Corpuscular Hemoglobin 29.6 pg (26-34); Mean Corpuscular Volume 92.9 fl (80-100); Mean Platelet Volume 10.4 fl (7.4-10.4); Platelet Count Result 183 k/mm3 (150-375); Red Blood Count 3.51 M/mm3 (4.2-5.4); Red Cell Distribution Width 13.2 % (11.5-14.5); White Blood Count 10.8 K/mm3 (4.5-10.0)
[2019-11-11 05:57] LABS: Blood Urea Nitrogen 8 mg/dL (7-17); Calcium 6.6 mg/dL (8.4-10.2); Carbon Dioxide 21 mmol/L (22-30); Chloride 106 mmol/L (98-107); Estimated CRCL calculation 60 ml/min; Estimated Glomerular Filt Rate > 60; Glucose 65 mg/dL (65-105); Potassium 3.3 mmol/L (3.4-5.0); Sodium 135 mmol/L (137-145)
[2019-11-11 06:00] VITALS: BP 125/59; PULSE 99; RESP 18; TEMP 36.7; O2SAT 93
[2019-11-11] MEDS: SODIUM CHLORIDE 0.9% IV 1,000 ML 100 ML IV CONT (06:30)
[2019-11-11] MEDS: LEVOTHYROXINE SODIUM INJ 100 MCG/5 ML VIAL 12.5 MCG IV PUSH (06:31)
[2019-11-11] MEDS: DEXTROSE 50% 25 GM/50 ML SYRINGE IV PUSH (07:46)
[2019-11-11 08:01] LABS: Glucose Point of Care 57 (65-105)
[2019-11-11] MEDS: DEXTROSE 5%/0.9% SOD CHL 1,000 ML 80 ML IV CONT (08:07)
[2019-11-11 08:16] LABS: Glucose Point of Care 122 (65-105)
--- NOTE | 2019-11-11 09:44 | PM.IMPN ---
Progress Note: A&P Assessment and Plan (1) Small bowel obstruction: Code(s): K56.609 - Unspecified intestinal obstruction, unspecified as to partial versus complete obstruction Status: Acute Assessment and Plan: Management per general surgery. She is POD#3 adhesiolysis and small bowel resection by Dr Crabtree 11/07. She presented with acute abdominal pain, nausea, vomiting. Symptoms were severe and trouble placing the NG, taken to OR for ex lap at that time. Leukocytosis improved, afebrile overnight; unclear if wall thickening just reactive or secondary to infection thus she remains on Zosyn (day 4) today. Unfortunately she has increased pain and bloating which may be secondary to the water she has been drinking out of the water fountain. Detailed discussion held with patient and Lyla reiterated the importance of not drinking water. May explain the large amount of gastric contents from NG overnight as well. Has not passed flatus, no BM since surgery. (2) Hypoglycemia: Code(s): E16.2 - Hypoglycemia, unspecified Status: Acute Assessment and Plan: After GI surgery being NPO. Accu-cheks q6 while NPO and initiate hypoglycemia protocol. D5 added to IV fluids this morning. Monitor and adjust treatment as needed. (3) RLS (restless legs syndrome): Code(s): G25.81 - Restless legs syndrome Status: Chronic Assessment and Plan: Resume home ropinirole when appropriate. (4) Hypothyroidism: Qualifiers: Hypothyroidism type: unspecified Qualified Code(s): E03.9 - Hypothyroidism, unspecified Code(s): E03.9 - Hypothyroidism, unspecified Status: Chronic Assessment and Plan: Continue Levothryoxine IV. (5) Depression: Qualifiers: Depression Type: unspecified Qualified Code(s): F32.9 - Major depressive disorder, single episode, unspecified Code(s): F32.9 - Major depressive disorder, single episode, unspecified Status: Chronic Assessment and Plan: Resume home meds when possible. (6) Gonorrhea: Code(s): A54.9 - Gonococcal infection, unspecified Status: Acute Assessment and Plan: Patient notes she was contacted 11/08 by [facility] regarding her visit 10/27/19 notifying her she tested positive for gonorrhea. She described she was having symptoms of vaginal discharge and pain at that time. Received faxed results from that note oscar positive and gonorrhea equivocal abnormal . She describes no new sexual partners and has been with the same partner for 2 years. Restest for gonorrhea and chlamydia pending. Subjective Date/time seen: 11/11/19 09:15 Interval history: Ms. Jacome is a 64yo F admitted for small bowel obstruction. She is evaluated this morning by myself and Lyla FISHING GUIDE at the bedside. She is tearful, feeling quite poorly this morning and notes that her abdominal pain is significant. Says her pain similar to the pain she had prior to the surgery. Unfortunately she has been seen by staff drinking water out of the water fountain in the hallway and she admits that she was doing this yesterday as well. She feels bloated and nauseous. Review of Systems Review of Systems: Narrative: Twelve systems were reviewed with pertinent positives and negatives as per HPI. Exam Narrative: Exam Narrative: General: Female seen ambulating independently in the hallway, comes back to bed. Tearful. HEENT: Normocephalic, EOMI, oral mucosa moist. Cardiovascular: Rate and rhythm are regular. Respiratory: Lungs clear to auscultation all tavares. Non-labored breathing. Abdomen: Soft, non-distended, midline incision is stapled, clean and dry without evidence of infection. Extremities: Peripheral pulses intact. No edema. Neuro: No focal
--- NOTE | 2019-11-11 12:46 | PCNFU ---
Nutrition Follow-Up Complete: Alterned GI fxn as related to possible SBO as evidenced by NPO/NGT. Goal: Meet estimated nutritional needs Limited progress towards goal. We will continue current goal. Pt current nutrition is NPO x 5 days.. Nutrition recommendation: Advance diet as tolerated per MD orders or Parentral Nutrition Support Last recorded weight is 55 kg. Bowel Motility: No BM reported, Flatus is present. Labs Reviewed:Na 135,K 3.3,Hgb 10.4,HCT 32.6 Meds Noted:Zocyn, Dextrose 5% 1000 ml at 100 ml/hr Additional Notes: Patient remains NPO x 5 days. Nursing reports she has been up walking in the halls. She has been caught drinking water and that has been addressed by nursing. Surgery is on the case they are aware of NPO status. Recommend diet order advancement by day 7 or start Parentral nutrition support Clinimix E 4.24/5 at 50 ml/hr and 250 ml of Lipid Emulsion. Monitoring:Will monitor every 3 days.
--- NOTE | 2019-11-11 13:13 | PM.PNGS ---
Progress Note: A&P Assessment and Plan (1) Small bowel obstruction: Code(s): K56.609 - Unspecified intestinal obstruction, unspecified as to partial versus complete obstruction Status: Acute Assessment and Plan: Increased abdominal pain and bloating. Mildly distended on exam and diffusely tender. Increased NG output likely due to independent oral intake over the past 12-24 hours. I discussed with the patient the importance of her being NPO and complying with this order. Will get a KUB today due to symptoms, exam, and increased NG output. Post-op ileus is expected. Increase activity. Continue NG decompression. (2) Hiatal hernia: Code(s): K44.9 - Diaphragmatic hernia without obstruction or gangrene Status: Acute Additional Plan Discussed plan of care with Dr. Crabtree. Subjective Subjective Date/Time Seen: 11/11/19 12:13 Post Op day: 3 Patient reports: still having pain, no flatus, no bowel movement and nausea Interval history: Patient reports increased generalized abdominal pain and bloating today. Reports some nausea this morning but this has subsided. NG with 1850 output documented overnight. Upon questioning, the patient admits to drinking water from the water fountain while walking the halls throughout the day yesterday and this morning due to thirst. No flatus or BM. No other complaints at this time. Review of Systems Review of Systems: All systems reviewed & are unremarkable except as noted in HPI and below Constitutional: Constitutional: Denies chills and Denies fever(s) Cardiovascular: Cardiovascular: Denies chest pain and Denies leg edema Respiratory: Respiratory: Denies cough and Denies dyspnea Gastrointestinal: Gastrointestinal: Reports as per HPI and Reports no additional gastrointestinal complaints Exam Const: General: alert, awake and uncomfortable Orientation/consciousness: patient oriented x3 GI: Inspection: other (mildly distended) GI Palp: Yes Soft to palpation and Yes Tenderness to palpation present (GI) Auscultation: normal bowel sounds Other: Midline incision with minimal serosanguineous drainage, karla intact, no erythema or warmth. Dark discoloration of skin near umbilicus. Neuro: General: moves all extremities Cranial nerves: Yes CN's II-XII intact bilaterally Speech: normal speech Extrem: General: no calf tenderness and no edema Psych: Affect: Anxious affect present and Irritable affect present Attitude: cooperative Insight: Fair insight present (Psych) Judgement: Fair judgement present (Psych) Objective Data Vital Signs Vital Signs: Vital Signs - 24 hr 11/10/19 14:00 11/10/19 15:52 11/10/19 22:00 Temperature 36.8 C 37.0 C Pulse Rate 78 99 Respiratory Rate 18 18 Blood Pressure 119/57 L 142/74 H Pulse Oximetry 90 90 92 11/11/19 06:00 Temperature 36.7 C Pulse Rate 99 Respiratory Rate 18 Blood Pressure 125/59 L Pulse Oximetry 93 Intake/Output Intake/Output: Intake & Output 11/08/19 11/09/19 11/10/19 11/11/19 23:59 23:59 23:59 23:59 Intake Total 1815 3280 3910 1334 Output Total 440 1090 1210 1850 Balance 1375 2190 2700 -816 Meds/Results Medications: Active Medications Generic Name Dose Route Start Last Admin Trade Name Freq PRN Reason Stop Dose Admin Dextrose 12.5 gm 11/11/19 07:39 11/11/19 07:46 Dextrose 50% Syringe IV PUSH 12.5 gm PRN PRN Administration Hypoglycemia Protocol Glucagon 1 mg 11/11/19 07:39 Glucagon For Inj IM PRN PRN Hypoglycemia Protocol Hydromorphone HCl 0.5 mg 11/09/19 13:27 Dilaudid Inj IV PUSH Q2H PRN Pain Rated 4-6 Hydromorphone HCl 1 mg 11/09/19 13:27 11/11/19 10:13 Dilaudid Inj IV PUSH 1 mg Q2H PRN Administration Pain Rated 7-10 Piperacillin/Tazobactam/Dextrose 3.375 gm in 50 mls @ 100 mls/hr 11/08/19 06:00 11/11/19 12:08 Zosyn 3.375 Gm/D5w 50ml Pm IVPB 100 mls/hr Q6H GATO Administration Dextrose 1,000 ml
[2019-11-11 14:00] VITALS: BP 134/54; PULSE 89; RESP 16; TEMP 37.1; O2SAT 96
[2019-11-11 16:41] LABS: Glucose Point of Care 90 (65-105)
[2019-11-11 22:00] VITALS: BP 154/93; PULSE 90; RESP 16; TEMP 36.4; O2SAT 93
[2019-11-12 00:06] LABS: Glucose Point of Care 92 (65-105)
[2019-11-12] MEDS: HYDROMORPHONE HCL 1 MG/ML INJ IV PUSH ×7 (01:38→21:27)
[2019-11-12] MEDS: DEXTROSE 5%/0.9% SOD CHL 1,000 ML 80 ML IV CONT (03:36)
[2019-11-12 06:00] VITALS: BP 157/93; PULSE 91; RESP 16; TEMP 36.6; O2SAT 92
[2019-11-12 06:03] LABS: Glucose Point of Care 91 (65-105)
[2019-11-12 06:30] LABS: Basophils Percent Auto 0.4 % (0.2-1.2); Eosinophils Absolute Auto 0.2 K/mm3 (0-0.3); Eosinophils Percent Auto 2.1 % (0-4.4); Hemoglobin 10.9 g/dL (12.0-15.0); Immature Granulocyte Absolute 0.06 K/mm3 (0.00-0.031); Immature Granulocyte Percent A 0.7 % (0-0.5); Lymphocytes Absolute Auto 1.17 K/mm3 (0.9-3.2); Lymphocytes Percent Auto 14.4 % (18.3-44.2); Mean Corpuscular Volume 87.8 fl (80-100); Mean Platelet Volume 9.5 fl (7.4-10.4); Monocytes Absolute Auto 0.5 K/mm3 (0.1-0.6); Monocytes Percent Auto 6.3 % (2.6-8.5); Neutrophils Absolute Auto 6.2 K/mm3 (1.3-6.7); Neutrophils Percent Auto 76.1 % (45.5-73.1); Platelet Count Result 224 k/mm3 (150-375); Red Blood Count 3.76 M/mm3 (4.2-5.4); Red Cell Distribution Width 12.4 % (11.5-14.5); White Blood Count 8.1 K/mm3 (4.5-10.0)
[2019-11-12 06:39] LABS: Alanine Aminotransferase 10 U/L (4-35); Alkaline Phosphatase 57 U/L (38-126); Aspartate Amino Transferase 21 U/L (14-36); Bilirubin,Total 0.4 mg/dL (0.2-1.3); Blood Urea Nitrogen 3 mg/dL (7-17); Calcium 7.4 mg/dL (8.4-10.2); Carbon Dioxide 29 mmol/L (22-30); Chloride 102 mmol/L (98-107); Estimated CRCL calculation 98 ml/min; Estimated Glomerular Filt Rate > 60; Glucose 104 mg/dL (65-105); Magnesium 1.9 mg/dL (1.6-2.3); Phosphorus 1.1 mg/dL (2.5-4.5); Potassium 3.4 mmol/L (3.4-5.0); Sodium 133 mmol/L (137-145)
[2019-11-12] MEDS: POTASSIUM PHOS,M-BASIC-D-BASIC 20 MMOL in SODIUM CHLORIDE 0.9% IV 250 ML 64 MMOL IVPB (09:00)
[2019-11-12] MEDS: LEVOTHYROXINE SODIUM INJ 100 MCG/5 ML VIAL 12.5 MCG IV PUSH (09:00)
[2019-11-12] MEDS: KCL 20 MEQ/D5/0.9% SOD CHL 1,000 ML 100 ML IV CONT (09:00)
[2019-11-12 09:51] VITALS: BP 187/100; PULSE 120
--- NOTE | 2019-11-12 10:44 | PM.PNGS ---
Progress Note: A&P Assessment and Plan (1) Small bowel obstruction: Code(s): K56.609 - Unspecified intestinal obstruction, unspecified as to partial versus complete obstruction Status: Acute Assessment and Plan: Patient continues to improve. Ileus seems to be resolving. Bowel function returned. Will initiate a NG clamping trial and allow her to have clear liquids. If she does well with this, then we will remove the NG later today and start clear liquid dite. Continue to increase activity. Encouraged IS use. (2) Hiatal hernia: Code(s): K44.9 - Diaphragmatic hernia without obstruction or gangrene Status: Acute Additional Plan Discussed plan of care with Dr. Crabtree. Subjective Subjective Date/Time Seen: 11/12/19 10:44 Post Op day: 4 Patient reports: feels better, pain is less, voiding w/o difficulty, flatus and bowel movement (x2) Interval history: Patient reports feeling well this morning. Only having incisional abdominal pain that is tolerable. Has been walking the halls. Reports flatus and 1 bowel movement last night and already a bowel movement this morning. Denies nausea or vomiting. Reports her bloating has improved. No other complaints at this time. Review of Systems Review of Systems: All systems reviewed & are unremarkable except as noted in HPI and below Constitutional: Constitutional: Denies chills and Denies fever(s) Cardiovascular: Cardiovascular: Reports no additional cardiovascular complaints, Denies chest pain and Denies leg edema Respiratory: Respiratory: Reports no additional respiratory complaints, Denies chest congestion, Denies dyspnea and Denies wheezing Gastrointestinal: Gastrointestinal: Reports as per HPI and Reports no additional gastrointestinal complaints Genitourinary: Genitourinary: Denies dysuria, Denies urinary hesitancy and Denies urinary urgency Exam Const: General: comfortable, no acute distress, alert and awake GI: Inspection: normal to inspection, non-distended and incision (Clean, dry, and intact) GI Palp: Yes Soft to palpation, Yes Tenderness to palpation present (GI) (Incisional tenderness), No Guarding due to palpation present (GI), No Rigid due to palpation and No Rebound tenderness present Auscultation: normal bowel sounds Skin: General skin exam: normal color Neuro: General: moves all extremities and no focal motor deficits Extrem: General: normal to inspection, no clubbing, cyanosis or edema and no calf tenderness Psych: Mental Status: mental status grossly normal Affect: normal affect Attitude: cooperative Thought process: Normal thought process present Insight: Good insight present (Psych) Judgement: Good judgement present (Psych) Objective Data Vital Signs Vital Signs: Vital Signs - 24 hr 11/11/19 14:00 11/11/19 22:00 11/12/19 06:00 Temperature 37.1 C 36.4 C 36.6 C Pulse Rate 89 90 91 Respiratory Rate 16 16 16 Blood Pressure 134/54 L 154/93 H 157/93 H Pulse Oximetry 96 93 92 11/12/19 09:51 Temperature Pulse Rate 120 H Respiratory Rate Blood Pressure 187/100 H Pulse Oximetry Intake/Output Intake/Output: Intake & Output 11/09/19 11/10/19 11/11/19 11/12/19 23:59 23:59 23:59 23:59 Intake Total 3280 3910 2434 50 Output Total 1090 1210 2450 1400 Balance 2197 8796 -18 -1515 Meds/Results Medications: Active Medications Generic Name Dose Route Start Last Admin Trade Name Freq PRN Reason Stop Dose Admin Dextrose 12.5 gm 11/11/19 07:39 11/11/19 07:46 Dextrose 50% Syringe IV PUSH 12.5 gm PRN PRN Administration Hypoglycemia Protocol Glucagon 1 mg 11/11/19 07:39 Glucagon For Inj IM PRN PRN Hypoglycemia Protocol Hydralazine HCl 10 mg 11/12/19 09:52 Apresoline Hcl Inj IV PUSH Q8H PRN systolic >170 Hydromorphone HCl 0.5 mg 11/09/19 13:27 Dilaudid Inj IV PUSH Q2H PRN Pain Rated 4-6 Hydromorphone HCl 1 mg 11/09/19 13:27
[2019-11-12] MEDS: hydrALAZINE HCL 20 MG/ML VIAL 10 MG IV PUSH (10:59)
[2019-11-12 11:16] VITALS: BP 175/91; PULSE 112
--- NOTE | 2019-11-12 13:45 | PC.NURSE ---
Patient NG clamped at 1045. Patient had clear liquids but at 1315 nauseated and vomited bile and incontinent of soft stool . Shwetha DYE called and notified. NG to low intermittent suction.
[2019-11-12 14:00] VITALS: BP 151/63; PULSE 100; RESP 16; TEMP 36.7; O2SAT 95
[2019-11-12] MEDS: ONDANSETRON INJ 4 MG/2 ML VIAL IV PUSH (14:23)
[2019-11-12 14:37] LABS: Glucose Point of Care 119 (65-105)
--- NOTE | 2019-11-12 15:26 | PM.IMPN ---
Progress Note: A&P Assessment and Plan (1) Small bowel obstruction: Code(s): K56.609 - Unspecified intestinal obstruction, unspecified as to partial versus complete obstruction Status: Acute Assessment and Plan: -----status post adhesiolysis and partial small-bowel resection. Patient is now having bowel movements and was trying to eat lunch during my exam. She had soft bowel sounds but they were present. I was notified after my exam that she threw up her lunch and she is now back on the NG tube to suction. She says she has been walking around the halls and trying to be active. She is now back on Clinimix and the IV fluids have been stopped. Patient's last fever was 11/08. Continue antibiotics at this time. Will add PPI (2) Hypoglycemia: Code(s): E16.2 - Hypoglycemia, unspecified Status: Acute Assessment and Plan: -----noted after surgery, continue Accu-Cheks (3) RLS (restless legs syndrome): Code(s): G25.81 - Restless legs syndrome Status: Chronic Assessment and Plan: ------Resume home ropinirole when appropriate. (4) Hypothyroidism: Qualifiers: Hypothyroidism type: unspecified Qualified Code(s): E03.9 - Hypothyroidism, unspecified Code(s): E03.9 - Hypothyroidism, unspecified Status: Chronic Assessment and Plan: ------Continue Levothryoxine IV. (5) Depression: Qualifiers: Depression Type: unspecified Qualified Code(s): F32.9 - Major depressive disorder, single episode, unspecified Code(s): F32.9 - Major depressive disorder, single episode, unspecified Status: Chronic Assessment and Plan: -----Resume home meds when possible. (6) Gonorrhea: Code(s): A54.9 - Gonococcal infection, unspecified Status: Acute Assessment and Plan: ------Patient notes she was contacted 11/08 by [facility] regarding her visit 10/27/19 notifying her she tested positive for gonorrhea. She described she was having symptoms of vaginal discharge and pain at that time. Received faxed results from that note oscar positive and gonorrhea equivocal abnormal . She describes no new sexual partners and has been with the same partner for 2 years. Restest for gonorrhea and chlamydia pending. Patient has been on Zosyn (7) Hypophosphatemia: Code(s): E83.39 - Other disorders of phosphorus metabolism Status: Acute Assessment and Plan: -----supplemented IV this morning and will recheck tomorrow. Additional Plan Time Spent With Patient Time with patient: 25 - 35 minutes Subjective Date/time seen: 11/12/19 15:26 Interval history: Pt is a 64 y/o female here for SBO now S/P adhesiolysis with partial small bowel resection. Pt was seen today right before lunch and was doing okay. She has been having bowel movements and some nausea but no vomiting so far. She is sore from her procedure but overall doing okay. She denies CP, SOB, fevers, or chills. Review of Systems Review of Systems: All systems reviewed & are unremarkable except as noted in HPI and below Exam Narrative: Exam Narrative: General: Well developed well nourished patient resting in bed in NAD HEENT: normocephalic, NG intact. Neck: supple Neuro: Alert and oriented x4 CV:RRR Resp:CTA Abd: Soft, non distended. Incision looks clear and dry without discharge or dehiscence. Soft, occasional bowel sounds present. Extremities: No swelling, erythema, or pain to palpation. Objective Data Vital Signs Vital Signs: Vital Signs - 24 hr 11/11/19 22:00 11/12/19 06:00 11/12/19 09:51 Temperature 97.6 F 97.9 F Pulse Rate 90 91 120 H Respiratory Rate 16 16 Blood Pressure 154/93 H 157/93 H 187/100 H Pulse Oximetry 93 92 11/12/19 11:16 11/12/19 14:00 Temperature 98.1 F Pulse Rate 112 H 100 Respiratory Rate 16 Blood Pressure 175/91 H 151/63 H Pulse Oximetry 95 Intake/O
--- NOTE | 2019-11-12 15:44 | PCDIET ---
Nutrition Follow-Up Complete: Altered GI fx as related to possible SBO as evidenced by NPO/NGT. Meet estimated nutritional needs Goal:Progressing towards goal. Continue current goal. Pt current nutrition is NPO with PPN 4.25/5% +250ml 20% lipids. Nutrition recommendation: Agree Last recorded weight is 55 kg (recommend new wt) Labs Reviewed:PO4 1.9, Na 133, Glucose 119, Albumin 3.0, Protein, 6.0 Additional Notes: Pt now day five NPO due to intolerance to oral foods at this time. NG placed to suction. PPN 4.25/5% + 250ml 20% lipids started at 80ml/hr providing 1153kcal and 82 g protein and 2170ml of fluid. I would recommend starting PPN at 40ml/hr day one and increasing to goal of 80ml/hr tomorrow IF electrolytes remain stable due to high risk of refeeding syndrome. We will monitor daily. Will monitor every 3 days.
[2019-11-12] MEDS: AMINO ACIDS 4.25%/D5W/LYTES/CA 2,000 ML 40 ML IV CONT (16:56)
[2019-11-12] MEDS: FAT EMULSIONS IV 20% 250 ML 20.8 ML IVPB (16:57)
[2019-11-12] MEDS: PANTOPRAZOLE SODIUM IV 40 MG VIAL IV PUSH (16:58)
[2019-11-12 18:01] LABS: Glucose Point of Care 103 (65-105)
[2019-11-12 22:00] VITALS: BP 150/84; PULSE 88; RESP 18; TEMP 37; O2SAT 94
[2019-11-12 23:58] LABS: Glucose Point of Care 116 (65-105)
[2019-11-13] MEDS: HYDROMORPHONE HCL 1 MG/ML INJ IV PUSH ×6 (01:52→22:03)
[2019-11-13] MEDS: ONDANSETRON INJ 4 MG/2 ML VIAL IV PUSH ×4 (01:52→20:46)
[2019-11-13] MEDS: LEVOTHYROXINE SODIUM INJ 100 MCG/5 ML VIAL 12.5 MCG IV PUSH (05:39)
[2019-11-13 06:00] VITALS: BP 162/87; PULSE 94; RESP 22; TEMP 37.6; O2SAT 94
[2019-11-13 06:36] LABS: Glucose Point of Care 137 (65-105)
[2019-11-13 06:42] LABS: Hematocrit 35.9 % (37.0-47.0); Hemoglobin 12.2 g/dL (12.0-15.0); Mean Corpuscular Hemoglobin 29.5 pg (26-34); Mean Corpuscular Volume 86.9 fl (80-100); Mean Platelet Volume 9.7 fl (7.4-10.4); Platelet Count Result 250 k/mm3 (150-375); Red Blood Count 4.13 M/mm3 (4.2-5.4); Red Cell Distribution Width 12.3 % (11.5-14.5); White Blood Count 8.9 K/mm3 (4.5-10.0)
[2019-11-13 06:49] LABS: Blood Urea Nitrogen 7 mg/dL (7-17); Calcium 7.7 mg/dL (8.4-10.2); Carbon Dioxide 26 mmol/L (22-30); Chloride 95 mmol/L (98-107); Estimated CRCL calculation 98 ml/min; Estimated Glomerular Filt Rate > 60; Glucose 125 mg/dL (65-105); Magnesium 1.7 mg/dL (1.6-2.3); Phosphorus 2.7 mg/dL (2.5-4.5); Potassium 2.9 mmol/L (3.4-5.0); Sodium 128 mmol/L (137-145)
[2019-11-13] MEDS: PANTOPRAZOLE SODIUM IV 40 MG VIAL IV PUSH (08:10)
[2019-11-13] MEDS: KCL 20 MEQ/SW 100 ML 100 ML 50 MEQ IVPB (08:45)
--- NOTE | 2019-11-13 09:06 | PM.IMPN ---
Progress Note: A&P Assessment and Plan (1) Small bowel obstruction: Code(s): K56.609 - Unspecified intestinal obstruction, unspecified as to partial versus complete obstruction Status: Acute Assessment and Plan: -----status post adhesiolysis and partial small-bowel resection. Pt is still having pain, nausea and vomiting. No acute abdomen sounds and CO2 was normal on BMP this morning. Spoke with Sx and plan to do a CT abd/plv with contrast today since she is still having so much post op issues. She has been NPO and getting clinimix and PPI was added 11/11. (2) Hypoglycemia: Code(s): E16.2 - Hypoglycemia, unspecified Status: Acute Assessment and Plan: -----noted after surgery, now 125. continue Accu-Cheks (3) RLS (restless legs syndrome): Code(s): G25.81 - Restless legs syndrome Status: Chronic Assessment and Plan: ------Resume home ropinirole when appropriate. (4) Hypothyroidism: Qualifiers: Hypothyroidism type: unspecified Qualified Code(s): E03.9 - Hypothyroidism, unspecified Code(s): E03.9 - Hypothyroidism, unspecified Status: Chronic Assessment and Plan: ------Continue Levothryoxine IV. (5) Depression: Qualifiers: Depression Type: unspecified Qualified Code(s): F32.9 - Major depressive disorder, single episode, unspecified Code(s): F32.9 - Major depressive disorder, single episode, unspecified Status: Chronic Assessment and Plan: -----Resume home meds when possible. (6) Gonorrhea: Code(s): A54.9 - Gonococcal infection, unspecified Status: Acute Assessment and Plan: ------Patient notes she was contacted 11/08 by [facility] regarding her visit 10/27/19 notifying her she tested positive for gonorrhea. She described she was having symptoms of vaginal discharge and pain at that time. Received faxed results from that note oscar positive and gonorrhea equivocal abnormal . She describes no new sexual partners and has been with the same partner for 2 years. Restest for gonorrhea and chlamydia neg. Patient has been on Zosyn (7) Hypophosphatemia: Code(s): E83.39 - Other disorders of phosphorus metabolism Status: Acute Assessment and Plan: -----Resolved. (8) Hyponatremia: Code(s): E87.1 - Hypo-osmolality and hyponatremia Status: Acute Assessment and Plan: -----Noted today 128. Will do urine sodium. Pt looks a little dehydrated since having diarrhea and will likely be placed on a small amount of fluids but will have to decrease clinamix (await urine sodium first). Could be SIADH from pain and sx. Will do repeat BMP at 3. She also had low potassium today. 20meq was given IV and there is also around 30meq in the clinimix as well. Additional Plan Subjective Date/time seen: 11/13/19 09:06 Interval history: Pt is a 64 y/o female here for SBO now S/P adhesiolysis with partial small bowel resection. Pt was seen today and having some abdominal pain and nausea. She states she vomited this morning and is overall feeling weak. She has been having stool incontinence. She denies shaking chills, chest pain, or SOB. Exam Narrative: Exam Narrative: General: Frail patient resting in bed in NAD HEENT: normocephalic, NG intact. Neck: supple Neuro: Alert and oriented x4 CV:RRR Resp:CTA Abd: Soft, non distended. Incision looks clear and dry without discharge or dehiscence. Soft, occasional bowel sounds present. Large brown BM in the bed Extremities: No swelling, erythema, or pain to palpation. Objective Data Vital Signs Vital Signs: Vital Signs - 24 hr 11/12/19 09:51 11/12/19 11:16 11/12/19 14:00 Temperature 98.1 F Pulse Rate 120 H 112 H 100 Respiratory Rate 16 Blood Pressure 187/100 H 175/91 H 151/63 H Pulse Oximetry 95 11/12/19 22:00 11/13/19 06:00 Temperature 98.6
[2019-11-13 11:22] LABS: Sodium Urine Random 144 meq/L
--- NOTE | 2019-11-13 11:51 | PM.PNGS ---
Progress Note: A&P Assessment and Plan (1) Small bowel obstruction: Code(s): K56.609 - Unspecified intestinal obstruction, unspecified as to partial versus complete obstruction Status: Acute Assessment and Plan: exam benign but still c intractable N/V, likely postop ileus, cont TPN, NG decompression, will get CT for further eval Subjective Subjective Date/Time Seen: 11/13/19 11:51 Pt reports she feels pretty miserable, still c N/V. Pt reports bowel fxn. Pt reports minimal to no abd pain. Review of Systems Constitutional: Constitutional: Reports fatigue, Reports lethargy and Reports weakness Cardiovascular: Cardiovascular: Denies chest pain Respiratory: Respiratory: Denies dyspnea Gastrointestinal: Gastrointestinal: Denies abdominal pain, Reports bloating, Reports diarrhea, Reports nausea and Reports vomiting Exam Const: General: in distress moderate Resp: Auscultation: clear to auscultation bilaterally Cardio: Rate: regular rate Rhythm: regular rhythm GI: Other: soft, sl dist, minimal TTP, incision C/D/I Objective Data Vital Signs Vital Signs: Vital Signs - 24 hr 11/12/19 14:00 11/12/19 22:00 11/13/19 06:00 Temperature 36.7 C 37.0 C 37.6 C H Pulse Rate 100 88 94 Respiratory Rate 16 18 22 H Blood Pressure 151/63 H 150/84 H 162/87 H Pulse Oximetry 95 94 94 Intake/Output Intake/Output: Intake & Output 11/10/19 11/11/19 11/12/19 11/13/19 23:59 23:59 23:59 23:59 Intake Total 3910 2434 1206.666 50 Output Total 1210 2450 3150 350 Balance 2700 -16 -1943.334 -300 Meds/Results Medications: Active Medications Generic Name Dose Route Start Last Admin Trade Name Freq PRN Reason Stop Dose Admin Dextrose 12.5 gm 11/11/19 07:39 11/11/19 07:46 Dextrose 50% Syringe IV PUSH 12.5 gm PRN PRN Administration Hypoglycemia Protocol Glucagon 1 mg 11/11/19 07:39 Glucagon For Inj IM PRN PRN Hypoglycemia Protocol Hydralazine HCl 10 mg 11/12/19 09:52 11/12/19 10:59 Apresoline Hcl Inj IV PUSH 10 mg Q8H PRN Administration systolic >170 Hydromorphone HCl 0.5 mg 11/09/19 13:27 Dilaudid Inj IV PUSH Q2H PRN Pain Rated 4-6 Hydromorphone HCl 1 mg 11/09/19 13:27 11/13/19 11:05 Dilaudid Inj IV PUSH 1 mg Q2H PRN Administration Pain Rated 7-10 Piperacillin/Tazobactam/Dextrose 3.375 gm in 50 mls @ 100 mls/hr 11/08/19 06:00 11/13/19 05:45 Zosyn 3.375 Gm/D5w 50ml Pm IVPB 100 mls/hr Q6H GATO Administration Dextrose 1,000 mls @ 100 mls/hr 11/11/19 07:39 Dextrose 5% 1,000 Ml IVPB PRN PRN Hypoglycemia Protocol Dextrose 1,000 mls @ 50 mls/hr 11/12/19 14:59 Dextrose 10% IV CONT .Q20H PRN if PN is interrupted Amino Acids/Electrolytes/Dextrose 2,000 mls @ 80 mls/hr 11/12/19 15:00 11/12/19 16:56 Clinimix E 4.25%/5% Solution IV CONT 40 mls/hr .Q24H GATO Administration Protocol Fat Emulsion Intravenous 250 mls @ 20.833 mls/hr 11/12/19 15:00 11/12/19 16:57 Lipids 20% IVPB 20.8 mls/hr Q24H GATO Administration Levothyroxine Sodium 12.5 mcg 11/08/19 06:30 11/13/19 05:39 Synthroid Inj IV PUSH 12.5 mcg DAILY@0630 GATO Administration Ondansetron HCl 4 mg 11/07/19 23:39 11/13/19 08:10 Zofran Inj IV PUSH 4 mg Q4H PRN Administration Nausea Pantoprazole Sodium 40 mg 11/12/19 15:45 11/13/19 08:10 Protonix Iv IV PUSH 40 mg QAM GATO Administration Radiology Results: ITS Impressions Abdomen/Pelvis CT 11/07/19 23:02 IMPRESSION: 1. Small bowel obstruction with wall thickening in the distal ileum immediately distal to the transition point which could represent a scarring and chronic stricture or acute enteritis either infectious, inflammatory or less likely ischemic in etiology. 2. Likely reactive small amount of ascites scattered throughout the abdomen and pelvis. 3. Moderate-sized sliding-type hiatal hernia. NG Tub
[2019-11-13 14:00] VITALS: BP 152/89; PULSE 55; RESP 18; TEMP 36.7; O2SAT 94
[2019-11-13 14:17] LABS: Glucose Point of Care 117 (65-105)
--- NOTE | 2019-11-13 14:17 | PCNFU ---
Nutrition Follow-Up Complete: Altered GI fxn as related to possible SBO as evidenced by NPO/NGT. Goal: Meet estimated nutritional needs Limited progress towards goal. We will continue current goal. Pt current nutrition is Clinimix 4.25/5 @ 40 ml/hr with 250 ml Lipid Emulsion. Nutrition recommendation: advance PPN to 80 ml/hr Last recorded weight is 55 kg. Bowel Motility:+BM 11/11 Labs Reviewed:Na 128,K 2.9,Glu 125,Cr 0.4 Meds Noted:Baldemar Horta Additional Notes: Spoke with Surgery today, plans for CT scan. Patient will remain with NGT on PPN. Recommend to advance to 80 ml/hr which will provide 1153kcal and 82 g protein and 2170ml of fluid. This will meet 64% of patients caloric needs. If patient remains on PPN recommending placing central line and starting TPN at 40 ml/hr. Monitoring: Will monitor every Monday/Monday.
[2019-11-13 15:39] LABS: Blood Urea Nitrogen 10 mg/dL (7-17); Calcium 8.6 mg/dL (8.4-10.2); Carbon Dioxide 26 mmol/L (22-30); Chloride 95 mmol/L (98-107); Estimated CRCL calculation 98 ml/min; Estimated Glomerular Filt Rate > 60; Glucose 112 mg/dL (65-105); Potassium 3.4 mmol/L (3.4-5.0); Sodium 130 mmol/L (137-145)
[2019-11-13 15:40] LABS: Triglycerides 232 mg/dL (<150)
[2019-11-13] MEDS: AMINO ACIDS 4.25%/D5W/LYTES/CA 2,000 ML 40 ML IV CONT (16:14)
[2019-11-13] MEDS: FAT EMULSIONS IV 20% 250 ML 20.8 ML IVPB (16:15)
[2019-11-13 17:50] LABS: Glucose Point of Care 121 (65-105)
[2019-11-13 22:00] VITALS: BP 164/102; PULSE 104; RESP 16; TEMP 36.8; O2SAT 95
[2019-11-13 22:40] VITALS: BP 155/92
[2019-11-14] MEDS: HYDROMORPHONE HCL 1 MG/ML INJ IV PUSH ×9 (00:21→23:43)
[2019-11-14] MEDS: ONDANSETRON INJ 4 MG/2 ML VIAL IV PUSH ×5 (00:47→21:48)
[2019-11-14 00:52] LABS: Glucose Point of Care 129 (65-105)
[2019-11-14 02:00] VITALS: BP 158/99; PULSE 91; RESP 16; TEMP 36.4; O2SAT 94
[2019-11-14] MEDS: LEVOTHYROXINE SODIUM INJ 100 MCG/5 ML VIAL 12.5 MCG IV PUSH (05:34)
[2019-11-14 05:57] LABS: Glucose Point of Care 135 (65-105)
[2019-11-14 06:00] VITALS: BP 165/93; PULSE 86; RESP 16; TEMP 36.5; O2SAT 93
[2019-11-14 06:09] LABS: Basophils Absolute Auto 0.1 K/mm3 (0.0-0.1); Basophils Percent Auto 0.6 % (0.2-1.2); Eosinophils Absolute Auto 0.1 K/mm3 (0-0.3); Hematocrit 40.5 % (37.0-47.0); Hemoglobin 13.8 g/dL (12.0-15.0); Immature Granulocyte Percent A 2.4 % (0-0.5); Lymphocytes Absolute Auto 1.76 K/mm3 (0.9-3.2); Lymphocytes Percent Auto 14.1 % (18.3-44.2); Mean Corpuscular HGB Conc 34.1 g/dl (32-36); Mean Corpuscular Hemoglobin 29.4 pg (26-34); Mean Corpuscular Volume 86.2 fl (80-100); Mean Platelet Volume 9.2 fl (7.4-10.4); Monocytes Absolute Auto 1.3 K/mm3 (0.1-0.6); Monocytes Percent Auto 10.1 % (2.6-8.5); Neutrophils Absolute Auto 8.9 K/mm3 (1.3-6.7); Neutrophils Percent Auto 71.8 % (45.5-73.1); Platelet Count Result 356 k/mm3 (150-375); Red Cell Distribution Width 12.1 % (11.5-14.5); White Blood Count 12.4 K/mm3 (4.5-10.0)
[2019-11-14 06:28] LABS: Alanine Aminotransferase 13 U/L (4-35); Albumin Level 3.3 g/dL (3.5-5.1); Alkaline Phosphatase 60 U/L (38-126); Aspartate Amino Transferase 18 U/L (14-36); Bilirubin,Total 0.3 mg/dL (0.2-1.3); Blood Urea Nitrogen 15 mg/dL (7-17); Calcium 8.1 mg/dL (8.4-10.2); Carbon Dioxide 34 mmol/L (22-30); Chloride 92 mmol/L (98-107); Estimated CRCL calculation 81 ml/min; Estimated Glomerular Filt Rate > 60; Glucose 119 mg/dL (65-105); Magnesium 1.9 mg/dL (1.6-2.3); Phosphorus 3.2 mg/dL (2.5-4.5); Potassium 3.1 mmol/L (3.4-5.0); Sodium 131 mmol/L (137-145)
[2019-11-14] MEDS: PANTOPRAZOLE SODIUM IV 40 MG VIAL IV PUSH (08:11)
--- NOTE | 2019-11-14 11:13 | PM.PNGS ---
Progress Note: A&P Assessment and Plan (1) Small bowel obstruction: Code(s): K56.609 - Unspecified intestinal obstruction, unspecified as to partial versus complete obstruction Status: Acute Assessment and Plan: slight improvement today, ileus per CT, will start Reglan, encourage OOB Subjective Subjective Date/Time Seen: 11/14/19 11:13 still c/o discomfort, nausea, pt does report some mild improvement, pt cont to have loose BMs Review of Systems Constitutional: Constitutional: Denies chills, Reports fatigue, Reports lethargy and Reports weakness Cardiovascular: Cardiovascular: Denies chest pain Respiratory: Respiratory: Denies dyspnea Gastrointestinal: Gastrointestinal: Reports abdominal pain, Reports bloating, Denies constipation, Reports diarrhea, Reports nausea and Reports vomiting Exam Const: General: in distress mild Resp: Auscultation: clear to auscultation bilaterally Cardio: Rate: regular rate Rhythm: regular rhythm GI: Other: S, sl dist, mild TTP diffusely, incision C/D/I Objective Data Vital Signs Vital Signs: Vital Signs - 24 hr 11/13/19 14:00 11/13/19 22:00 11/13/19 22:40 Temperature 36.7 C 36.8 C Pulse Rate 55 L 104 H Respiratory Rate 18 16 Blood Pressure 152/89 H 164/102 H 155/92 H Pulse Oximetry 94 95 11/14/19 02:00 11/14/19 06:00 Temperature 36.4 C 36.5 C Pulse Rate 91 86 Respiratory Rate 16 16 Blood Pressure 158/99 H 165/93 H Pulse Oximetry 94 93 Intake/Output Intake/Output: Intake & Output 11/11/19 11/12/19 11/13/19 11/14/19 23:59 23:59 23:59 23:59 Intake Total 2434 8889.237 4305 420 Output Total 2450 3150 900 350 Balance -16 -[id number] 9048 70 Meds/Results Medications: Active Medications Generic Name Dose Route Start Last Admin Trade Name Freq PRN Reason Stop Dose Admin Dextrose 12.5 gm 11/11/19 07:39 11/11/19 07:46 Dextrose 50% Syringe IV PUSH 12.5 gm PRN PRN Administration Hypoglycemia Protocol Glucagon 1 mg 11/11/19 07:39 Glucagon For Inj IM PRN PRN Hypoglycemia Protocol Hydralazine HCl 10 mg 11/12/19 09:52 11/12/19 10:59 Apresoline Hcl Inj IV PUSH 10 mg Q8H PRN Administration systolic >170 Hydromorphone HCl 0.5 mg 11/09/19 13:27 Dilaudid Inj IV PUSH Q2H PRN Pain Rated 4-6 Hydromorphone HCl 1 mg 11/09/19 13:27 11/14/19 09:07 Dilaudid Inj IV PUSH 1 mg Q2H PRN Administration Pain Rated 7-10 Piperacillin/Tazobactam/Dextrose 3.375 gm in 50 mls @ 100 mls/hr 11/08/19 06:00 11/14/19 06:04 Zosyn 3.375 Gm/D5w 50ml Pm IVPB Infused Q6H GATO Infusion Dextrose 1,000 mls @ 100 mls/hr 11/11/19 07:39 Dextrose 5% 1,000 Ml IVPB PRN PRN Hypoglycemia Protocol Dextrose 1,000 mls @ 50 mls/hr 11/12/19 14:59 Dextrose 10% IV CONT .Q20H PRN if PN is interrupted Amino Acids/Electrolytes/Dextrose 2,000 mls @ 80 mls/hr 11/12/19 15:00 11/13/19 19:37 Clinimix E 4.25%/5% Solution IV CONT 80 mls/hr .Q24H GATO Infusion Protocol Fat Emulsion Intravenous 250 mls @ 20.833 mls/hr 11/12/19 15:00 11/14/19 04:17 Lipids 20% IVPB Infused Q24H GATO Infusion Acetaminophen 1,000 mg in 100 mls @ 400 mls/hr 11/14/19 10:54 11/14/19 11:03 Ofirmev 1,000 Mg Ivpb IVPB 11/15/19 10:55 400 mls/hr Q6H PRN Administration Pain Rated 1-3 Levothyroxine Sodium 12.5 mcg 11/08/19 06:30 11/14/19 05:34 Synthroid Inj IV PUSH 12.5 mcg DAILY@0630 GATO Administration Ondansetron HCl 4 mg 11/07/19 23:39 11/14/19 08:13 Zofran Inj IV PUSH 4 mg Q4H PRN Administration Nausea Pantoprazole Sodium 40 mg 11/12/19 15:45 11/14/19 08:11 Protonix Iv IV PUSH 40 mg QAM GATO Administration Radiology Results: ITS Impressions NG Tube Placement 11/08/19 09:44 IMPRESSION: 1. Large hiatal hernia with nasogastric tube tip in the hiatal hernia above the diaphragm. I was not able to pass the jackie
[2019-11-14] MEDS: METOCLOPRAMIDE HCL INJ 10 MG/2 ML VIAL IV PUSH ×3 (11:44→23:45)
--- NOTE | 2019-11-14 11:47 | PM.IMPN ---
Progress Note: A&P Assessment and Plan (1) Small bowel obstruction: Code(s): K56.609 - Unspecified intestinal obstruction, unspecified as to partial versus complete obstruction Status: Acute Assessment and Plan: -----status post adhesiolysis and partial small-bowel resection. Pt is still having pain, nausea and vomiting. She has no gas or BMs today. CT still shows ileus but also shows inflammation in the small and large bowel. Continue zosyn (day 6). No acute abdomen signs and CO2 was normal on BMP this morning. She has been NPO and getting clinimix and PPI was added 11/11. IV tylenol was given and she also has dilaudid if that doesn't work. (2) Hypoglycemia: Code(s): E16.2 - Hypoglycemia, unspecified Status: Acute Assessment and Plan: -----noted after surgery, now 119 (3) RLS (restless legs syndrome): Code(s): G25.81 - Restless legs syndrome Status: Chronic Assessment and Plan: ------Resume home ropinirole when appropriate. (4) Hypothyroidism: Qualifiers: Hypothyroidism type: unspecified Qualified Code(s): E03.9 - Hypothyroidism, unspecified Code(s): E03.9 - Hypothyroidism, unspecified Status: Chronic Assessment and Plan: ------Continue Levothryoxine IV. (5) Depression: Qualifiers: Depression Type: unspecified Qualified Code(s): F32.9 - Major depressive disorder, single episode, unspecified Code(s): F32.9 - Major depressive disorder, single episode, unspecified Status: Chronic Assessment and Plan: -----Resume home meds when possible. (6) Gonorrhea: Code(s): A54.9 - Gonococcal infection, unspecified Status: Acute Assessment and Plan: ------Patient notes she was contacted 11/08 by [facility] regarding her visit 10/27/19 notifying her she tested positive for gonorrhea. She described she was having symptoms of vaginal discharge and pain at that time. Received faxed results from that note oscar positive and gonorrhea equivocal abnormal . She describes no new sexual partners and has been with the same partner for 2 years. Restest for gonorrhea and chlamydia neg. Patient has been on Zosyn (7) Hypophosphatemia: Code(s): E83.39 - Other disorders of phosphorus metabolism Status: Acute Assessment and Plan: -----Resolved. (8) Hyponatremia: Code(s): E87.1 - Hypo-osmolality and hyponatremia Status: Acute Assessment and Plan: -----Improved to 131 today. Could be SIADH from pain and sx. She also had low potassium today but clinimix will provide her with some potassium and we will recheck tomorrow. mag normal. Additional Plan Subjective Date/time seen: 11/14/19 11:47 Interval history: Pt is a 64 y/o female here for SBO now S/P adhesiolysis with partial small bowel resection. Pt was seen today and having some abdominal pain that is 8/10. She says it comes and goes and feels like gas but she is unable to produce gas. She has not had a BM either. She has been out of bed and walking the halls. No CP or SOB. Exam Narrative: Exam Narrative: General: Frail patient resting in bed in NAD HEENT: normocephalic, NG intact. Neck: supple Neuro: Alert and oriented x4 CV:RRR Resp:CTA Abd: Soft, non distended. Incision looks clear and dry without discharge or dehiscence. +BS. Extremities: No swelling, erythema, or pain to palpation. Objective Data Vital Signs Vital Signs: Vital Signs - 24 hr 11/13/19 14:00 11/13/19 22:00 11/13/19 22:40 Temperature 98.0 F 98.3 F Pulse Rate 55 L 104 H Respiratory Rate 18 16 Blood Pressure 152/89 H 164/102 H 155/92 H Pulse Oximetry 94 95 11/14/19 02:00 11/14/19 06:00 Temperature 97.6 F 97.7 F Pulse Rate 91 86 Respiratory Rate 16 16 Blood Pressure 158/99 H 165/93 H Pulse Oximetry 94 93 Intake/Output Intake/Output: Intake & Output
[2019-11-14 12:14] LABS: Glucose Point of Care 126 (65-105)
[2019-11-14 14:32] VITALS: BP 166/84; PULSE 92; RESP 18; TEMP 36.3; O2SAT 99
[2019-11-14] MEDS: FAT EMULSIONS IV 20% 250 ML 20.8 ML IVPB (15:58)
[2019-11-14] MEDS: AMINO ACIDS 4.25%/D5W/LYTES/CA 2,000 ML 80 ML IV CONT (15:59)
[2019-11-14 17:46] LABS: Glucose Point of Care 91 (65-105)
--- NOTE | 2019-11-14 19:01 | PC.NURSE ---
Patient is refusing to try IV Tylenol for pain management.
[2019-11-14 22:00] VITALS: BP 163/89; PULSE 101; RESP 18; TEMP 36.7; O2SAT 97
[2019-11-15 00:12] LABS: Glucose Point of Care 134 (65-105)
[2019-11-15] MEDS: HYDROMORPHONE HCL 1 MG/ML INJ IV PUSH ×8 (02:38→21:34)
[2019-11-15] MEDS: ONDANSETRON INJ 4 MG/2 ML VIAL IV PUSH ×2 (04:43→14:30)
[2019-11-15] MEDS: LEVOTHYROXINE SODIUM INJ 100 MCG/5 ML VIAL 12.5 MCG IV PUSH (05:33)
[2019-11-15] MEDS: METOCLOPRAMIDE HCL INJ 10 MG/2 ML VIAL IV PUSH ×2 (05:33→17:21)
[2019-11-15 06:00] VITALS: BP 130/75; PULSE 86; RESP 18; TEMP 36.9; O2SAT 93
[2019-11-15 06:02] LABS: Blood Urea Nitrogen 14 mg/dL (7-17); Calcium 8.1 mg/dL (8.4-10.2); Carbon Dioxide 33 mmol/L (22-30); Chloride 92 mmol/L (98-107); Estimated CRCL calculation 81 ml/min; Estimated Glomerular Filt Rate > 60; Glucose 122 mg/dL (65-105); Phosphorus 3.5 mg/dL (2.5-4.5); Sodium 130 mmol/L (137-145)
[2019-11-15] MEDS: PANTOPRAZOLE SODIUM IV 40 MG VIAL IV PUSH (08:36)
[2019-11-15 08:52] LABS: Glucose Point of Care 118 (65-105)
--- NOTE | 2019-11-15 08:53 | PM.PNGS ---
Progress Note: A&P Assessment and Plan (1) Small bowel obstruction: Code(s): K56.609 - Unspecified intestinal obstruction, unspecified as to partial versus complete obstruction Status: Acute Assessment and Plan: better today, will try to clamp NG and poss dc later today, cont TPN for now, encourage OOB/IS Subjective Subjective Date/Time Seen: 11/15/19 08:53 feels better today, still c some abd pain and nausea Review of Systems Constitutional: Constitutional: Reports fatigue, Reports lethargy and Reports weakness Cardiovascular: Cardiovascular: Denies chest pain Respiratory: Respiratory: Denies dyspnea Gastrointestinal: Gastrointestinal: Reports abdominal pain, Denies bloating, Reports diarrhea, Reports nausea and Denies vomiting Exam Const: General: no acute distress Resp: Auscultation: clear to auscultation bilaterally Cardio: Rate: regular rate Rhythm: regular rhythm GI: Other: soft, decreased dist, mild TTP, incision C/D/I Objective Data Vital Signs Vital Signs: Vital Signs - 24 hr 11/14/19 14:32 11/14/19 22:00 11/15/19 06:00 Temperature 36.3 C L 36.7 C 36.9 C Pulse Rate 92 101 H 86 Respiratory Rate 18 18 18 Blood Pressure 166/84 H 163/89 H 130/75 Pulse Oximetry 99 97 93 Intake/Output Intake/Output: Intake & Output 11/12/19 11/13/19 11/14/19 11/15/19 23:59 23:59 23:59 23:59 Intake Total 2402.843 8539 2320 1862 Output Total 3150 306 283 5500 Balance -0090.934 5713 1670 662 Meds/Results Medications: Active Medications Generic Name Dose Route Start Last Admin Trade Name Freq PRN Reason Stop Dose Admin Dextrose 12.5 gm 11/11/19 07:39 11/11/19 07:46 Dextrose 50% Syringe IV PUSH 12.5 gm PRN PRN Administration Hypoglycemia Protocol Glucagon 1 mg 11/11/19 07:39 Glucagon For Inj IM PRN PRN Hypoglycemia Protocol Hydralazine HCl 10 mg 11/12/19 09:52 11/12/19 10:59 Apresoline Hcl Inj IV PUSH 10 mg Q8H PRN Administration systolic >170 Hydromorphone HCl 0.5 mg 11/09/19 13:27 Dilaudid Inj IV PUSH Q2H PRN Pain Rated 4-6 Hydromorphone HCl 1 mg 11/09/19 13:27 11/15/19 06:42 Dilaudid Inj IV PUSH 1 mg Q2H PRN Administration Pain Rated 7-10 Piperacillin/Tazobactam/Dextrose 3.375 gm in 50 mls @ 100 mls/hr 11/08/19 06:00 11/15/19 06:02 Zosyn 3.375 Gm/D5w 50ml Pm IVPB Infused Q6H GATO Infusion Dextrose 1,000 mls @ 100 mls/hr 11/11/19 07:39 Dextrose 5% 1,000 Ml IVPB PRN PRN Hypoglycemia Protocol Dextrose 1,000 mls @ 50 mls/hr 11/12/19 14:59 Dextrose 10% IV CONT .Q20H PRN if PN is interrupted Amino Acids/Electrolytes/Dextrose 2,000 mls @ 40 mls/hr 11/12/19 15:00 11/15/19 04:58 Clinimix E 4.25%/5% Solution IV CONT 80 mls/hr .Q24H GATO Infusion Protocol Fat Emulsion Intravenous 250 mls @ 20.833 mls/hr 11/12/19 15:00 11/15/19 04:50 Lipids 20% IVPB Infused Q24H GATO Infusion Acetaminophen 1,000 mg in 100 mls @ 400 mls/hr 11/14/19 10:54 11/14/19 11:56 Ofirmev 1,000 Mg Ivpb IVPB 11/15/19 10:55 Infused Q6H PRN Infusion Pain Rated 1-3 Potassium Chloride 100 mls @ 50 mls/hr 11/15/19 07:07 Potassium Chloride 20 Meq/Sw 100 Ml IVPB 11/15/19 09:06 ONCE ONE Levothyroxine Sodium 12.5 mcg 11/08/19 06:30 11/15/19 05:33 Synthroid Inj IV PUSH 12.5 mcg DAILY@0630 GATO Administration Metoclopramide HCl 10 mg 11/14/19 12:00 11/15/19 05:33 Reglan IV PUSH 10 mg Q6HR GATO Administration Ondansetron HCl 4 mg 11/07/19 23:39 11/15/19 04:43 Zofran Inj IV PUSH 4 mg Q4H PRN Administration Nausea Pantoprazole Sodium 40 mg 06/09/20 15:45 11/14/19 08:11 Protonix Iv IV PUSH 40 mg QAM GATO Administration Radiology Results: ITS Impressions NG Tube Placement 11/08/19 09:44 IMPRESSION: 1. Large hiatal hernia with nasogastric tube tip in the hiatal hernia above the diaphr
[2019-11-15] MEDS: KCL 20 MEQ/SW 100 ML 100 ML 50 MEQ IVPB (11:10)
--- NOTE | 2019-11-15 12:25 | PCNFU ---
Nutrition Follow-Up Complete: Alterned GI fxn as related to possible SBO as evidenced by NPO/NGT. goal: Meet estimated nutritional needs Progressing towards goal. We will continue current goal. Pt current nutrition is PPN. Nutrition recommendation:Agree Last recorded weight is 52.2 kg. Bowel Motility:+BM reported 11/14 Labs Reviewed:Cr 0.5,Na 130,K 3.0,Glu 122 Meds Noted:Reglan, Dilaudid, Clinimix 4.25%/5 at 80 ml/hr with 250 ml lipid Emulsion Additional Notes: Patient's NGT is clamped at this time. PPN is running and providing 1153 kcals and 82 gms protein, which is meeting 63% of caloric needs. hoping to d/c NGT and advance diet soon. Monitoring: Will monitor every Monday and Monday day.
--- NOTE | 2019-11-15 13:58 | PM.IMPN ---
Progress Note: A&P Assessment and Plan (1) Small bowel obstruction: Code(s): K56.609 - Unspecified intestinal obstruction, unspecified as to partial versus complete obstruction Status: Acute Assessment and Plan: -----status post adhesiolysis and partial small-bowel resection. Pt is improving and transitioned to clear liquids today. NG clamped. CT 11/12 showed ileus but also shows inflammation in the small and large bowel. Continue zosyn (day 7), will stop after completing todays. No acute abdomen signs and CO2 was normal on BMP this morning. She has been getting clinimix and PPI was added 11/11. IV tylenol was given and she also has dilaudid if that doesn't work. (2) Hypoglycemia: Code(s): E16.2 - Hypoglycemia, unspecified Status: Acute Assessment and Plan: -----noted after surgery, now 122 (3) RLS (restless legs syndrome): Code(s): G25.81 - Restless legs syndrome Status: Chronic Assessment and Plan: ------Resume home ropinirole when appropriate. (4) Hypothyroidism: Qualifiers: Hypothyroidism type: unspecified Qualified Code(s): E03.9 - Hypothyroidism, unspecified Code(s): E03.9 - Hypothyroidism, unspecified Status: Chronic Assessment and Plan: ------Continue Levothryoxine IV. (5) Depression: Qualifiers: Depression Type: unspecified Qualified Code(s): F32.9 - Major depressive disorder, single episode, unspecified Code(s): F32.9 - Major depressive disorder, single episode, unspecified Status: Chronic Assessment and Plan: -----Resume home meds when possible. (6) Gonorrhea: Code(s): A54.9 - Gonococcal infection, unspecified Status: Acute Assessment and Plan: ------Patient notes she was contacted 11/08 by [facility] regarding her visit 10/27/19 notifying her she tested positive for gonorrhea. She described she was having symptoms of vaginal discharge and pain at that time. Received faxed results from that note oscar positive and gonorrhea equivocal abnormal . She describes no new sexual partners and has been with the same partner for 2 years. Restest for gonorrhea and chlamydia neg. Patient has been on Zosyn (7) Hypophosphatemia: Code(s): E83.39 - Other disorders of phosphorus metabolism Status: Acute Assessment and Plan: -----Resolved. (8) Hyponatremia: Code(s): E87.1 - Hypo-osmolality and hyponatremia Status: Acute Assessment and Plan: -----fluctuates 130--will likely improve with eating. Could be SIADH from pain and sx. Additional Plan Subjective Date/time seen: 11/15/19 13:58 Interval history: Pt is a 64 y/o female here for SBO now S/P adhesiolysis with partial small bowel resection.Pt was seen today and states she feels much better than yesterday. She has tolerated clear liquids and does still have some abdominal pain but not as bad as yesterday. She has had BMs and passing gas. No nausea and vomiting since the NG was clamped. She denies SOB, CP, fevers or chills. Exam Narrative: Exam Narrative: General: Frail patient resting in bed in NAD HEENT: normocephalic, NG intact. Neck: supple Neuro: Alert and oriented x4 CV:RRR Resp:CTA Abd: Soft, non distended. Incision looks clear and dry without discharge or dehiscence. +BS. Extremities: No swelling, erythema, or pain to palpation. Objective Data Vital Signs Vital Signs: Vital Signs - 24 hr 11/14/19 14:32 11/14/19 22:00 11/15/19 06:00 Temperature 97.4 F L 98.1 F 98.4 F Pulse Rate 92 101 H 86 Respiratory Rate 18 18 18 Blood Pressure 166/84 H 163/89 H 130/75 Pulse Oximetry 99 97 93 Intake/Output Intake/Output: Intake & Output 11/12/19 11/13/19 11/14/19 11/15/19 23:59 23:59 23:59 23:59 Intake Total 7719.445 6737 2320 1862 Output Total 3150 405 850 0068 Balance -6400.181 3599 1670 662 Meds
[2019-11-15 15:01] LABS: Triglycerides 190 mg/dL (<150)
[2019-11-15 15:23] VITALS: BP 166/79; PULSE 87; RESP 16; TEMP 36.6; O2SAT 95
[2019-11-15] MEDS: FAT EMULSIONS IV 20% 250 ML 21 ML IVPB (17:51)
[2019-11-15] MEDS: AMINO ACIDS 4.25%/D5W/LYTES/CA 2,000 ML 80 ML IV CONT (17:52)
[2019-11-15 18:40] LABS: Glucose Point of Care 108 (65-105)
--- NOTE | 2019-11-15 19:29 | PC.NURSE ---
Gave zofran one time dose to avoid any nausea associated with pulling NG. at 1715, pt nauseated and in pain. Pt feels nausea stemming from level of pain. Pt willing to do reglan after much encouragement and discussion that diarrhea was expected at this time. It was time for the Q4H dilaudid, so I gave that as well. Pt had two episodes of vomit. After 30 minutes, pt states pain 3/10, no longer nauseous and willing to eat clear liquid dinner tray. I told her to let us know if she felt any more nausea or recurring pain.
[2019-11-15 22:00] VITALS: BP 145/88; PULSE 95; RESP 18; TEMP 37.2; O2SAT 96
[2019-11-15 23:59] LABS: Glucose Point of Care 105 (65-105)
[2019-11-16] MEDS: METOCLOPRAMIDE HCL INJ 10 MG/2 ML VIAL IV PUSH ×3 (00:25→23:55)
[2019-11-16] MEDS: HYDROMORPHONE HCL 1 MG/ML INJ IV PUSH ×5 (01:34→22:07)
[2019-11-16 04:33] LABS: Glucose Point of Care 100 (65-105)
[2019-11-16 05:54] LABS: Glucose Point of Care 106 (65-105)
[2019-11-16] MEDS: LEVOTHYROXINE SODIUM INJ 100 MCG/5 ML VIAL 12.5 MCG IV PUSH (05:57)
[2019-11-16] MEDS: ONDANSETRON INJ 4 MG/2 ML VIAL IV PUSH ×4 (05:57→22:07)
[2019-11-16 06:00] VITALS: BP 152/92; PULSE 90; RESP 20; TEMP 36.7; O2SAT 96
[2019-11-16 07:43] LABS: Hematocrit 36.1 % (37.0-47.0); Hemoglobin 12.4 g/dL (12.0-15.0); Mean Corpuscular HGB Conc 34.3 g/dl (32-36); Mean Corpuscular Hemoglobin 29.5 pg (26-34); Mean Corpuscular Volume 85.7 fl (80-100); Mean Platelet Volume 9.4 fl (7.4-10.4); Platelet Count Result 387 k/mm3 (150-375); Red Blood Count 4.21 M/mm3 (4.2-5.4); Red Cell Distribution Width 12.2 % (11.5-14.5); White Blood Count 13.5 K/mm3 (4.5-10.0)
[2019-11-16 08:09] LABS: Blood Urea Nitrogen 11 mg/dL (7-17); Calcium 8.1 mg/dL (8.4-10.2); Carbon Dioxide 29 mmol/L (22-30); Chloride 91 mmol/L (98-107); Estimated CRCL calculation 77 ml/min; Estimated Glomerular Filt Rate > 60; Glucose 120 mg/dL (65-105); Phosphorus 3.2 mg/dL (2.5-4.5); Sodium 128 mmol/L (137-145)
[2019-11-16] MEDS: POTASSIUM CHLORIDE 20 MEQ TABLET 40 MEQ PO (09:09)
[2019-11-16] MEDS: PANTOPRAZOLE SODIUM IV 40 MG VIAL IV PUSH (09:09)
--- NOTE | 2019-11-16 10:59 | PM.IMPN ---
Progress Note: A&P Assessment and Plan (1) Small bowel obstruction: Code(s): K56.609 - Unspecified intestinal obstruction, unspecified as to partial versus complete obstruction Status: Acute Assessment and Plan: -----status post adhesiolysis and partial small-bowel resection. Pt is improving and transitioned to full liquids today. NG removed. CT 11/12 showed ileus but also shows inflammation in the small and large bowel. Completed zosyn (7 days). No acute abdomen signs and CO2 was normal on BMP this morning. Will stop TPN and try and avoid narcotics for pain. (2) Diarrhea: Code(s): R19.7 - Diarrhea, unspecified Status: Acute Assessment and Plan: -----Likley associated with abx and TPN. Will stop both of these and see if it improves. If it doesn't improve and her WBC is worse tomorrow, consider c-diff testing. Fiber added. (3) Leukocytosis: Code(s): D72.829 - Elevated white blood cell count, unspecified Status: Acute Assessment and Plan: -----slowly increasing. see plan above. No fevers or signs of post op infection. (4) RLS (restless legs syndrome): Code(s): G25.81 - Restless legs syndrome Status: Chronic Assessment and Plan: ------Resume home ropinirole when appropriate. (5) Hypothyroidism: Qualifiers: Hypothyroidism type: unspecified Qualified Code(s): E03.9 - Hypothyroidism, unspecified Code(s): E03.9 - Hypothyroidism, unspecified Status: Chronic Assessment and Plan: ------Continue Levothryoxine IV. (6) Depression: Qualifiers: Depression Type: unspecified Qualified Code(s): F32.9 - Major depressive disorder, single episode, unspecified Code(s): F32.9 - Major depressive disorder, single episode, unspecified Status: Chronic Assessment and Plan: -----Resume home meds when possible. (7) Gonorrhea: Code(s): A54.9 - Gonococcal infection, unspecified Status: Acute Assessment and Plan: ------Patient notes she was contacted 11/08 by [facility] regarding her visit 10/27/19 notifying her she tested positive for gonorrhea. She described she was having symptoms of vaginal discharge and pain at that time. Received faxed results from that note oscar positive and gonorrhea equivocal abnormal . She describes no new sexual partners and has been with the same partner for 2 years. Restest for gonorrhea and chlamydia neg. Patient has been on Zosyn (8) Hypophosphatemia: Code(s): E83.39 - Other disorders of phosphorus metabolism Status: Acute Assessment and Plan: -----Resolved. (9) Hyponatremia: Code(s): E87.1 - Hypo-osmolality and hyponatremia Status: Acute Assessment and Plan: -----fluctuates 128--will likely improve with eating. Sodium high in the urine. Could be SIADH from pain and sx. Will give 500 of normal saline. (10) Hypoglycemia: Code(s): E16.2 - Hypoglycemia, unspecified Status: Acute Assessment and Plan: -----noted after surgery, now 120 Additional Plan Subjective Date/time seen: 11/16/19 10:59 Interval history: Pt is a 64 y/o female here for SBO now S/P adhesiolysis with partial small bowel resection.Pt was seen today and states she feels much better than yesterday. She has tolerated clear liquids and does still have some abdominal pain but not as bad as yesterday. She has had BMs and passing gas. No nausea and vomiting since the NG was clamped. She denies SOB, CP, fevers or chills. Exam Narrative: Exam Narrative: General: Frail patient resting in bed in NAD HEENT: normocephalic, NG intact. Neck: supple Neuro: Alert and oriented x4 CV:RRR Resp:CTA Abd: Soft, non distended. Incision looks clear and dry without discharge or dehiscence. +BS. Extremities: No swelling, erythema, or pain to palpation. Objective Data Vi
[2019-11-16] MEDS: SODIUM CHLORIDE 0.9% IV 250 ML 100 ML IV CONT (12:57)
[2019-11-16] MEDS: calcium polycarbophiL 625 MG TABLET PO (13:00)
[2019-11-16 13:18] LABS: Glucose Point of Care 121 (65-105)
[2019-11-16 14:00] VITALS: BP 155/85; PULSE 94; RESP 16; TEMP 36.8; O2SAT 96
--- NOTE | 2019-11-16 16:51 | PM.PNGS ---
Progress Note: A&P Assessment and Plan (1) Small bowel obstruction: Code(s): K56.609 - Unspecified intestinal obstruction, unspecified as to partial versus complete obstruction Status: Acute Assessment and Plan: better today, will stop TPN for now, encourage OOB/IS. I talked to the hospitalist earlier today and we increased the patient's diet. Consider discharge tomorrow if all is improving. I told the patient we water to walk more and be ready to try to go tomorrow and she seemed amenable to same. Additional Plan Encourage patient to increase her activity Encouraged her to decrease pain medicine that she is using. Increase diet to soft. Subjective Subjective Date/Time Seen: 11/16/19 14:51 Pt is a 64 y/o female here for SBO now S/P adhesiolysis with a small bowel resection done approximately 5 days ago. Significant vegetable material was found obstructing the small bowel at that point. .Pt was seen today and states she feels better than yesterday but still feels exhausted and tired and was sleeping when I entered the room. She has tolerated clear liquids and does still have some abdominal pain but not as bad as yesterday. She has had BMs and passing gas. No nausea and vomiting since the NG was clamped and then removed. She denies SOB, CP, fevers or chills. Review of Systems Constitutional: Constitutional: Reports no additional constitutional complaints ENT: Reports other (Mucous Membranes moist.) Cardiovascular: Cardiovascular: Denies dyspnea Respiratory: Respiratory: Denies pain on inspiration and Denies dyspnea Gastrointestinal: Gastrointestinal: Reports as per HPI, Denies bloating, Denies hematochezia, Denies dyspepsia, Denies heartburn and Denies vomiting Musculoskeletal: Musculoskeletal: Reports other (No calf swelling or edema) Integumentary/Breasts: Skin/Breast: Reports system reviewed and no additional complaints, except as docu Exam Const: General: comfortable, no acute distress, well developed, alert, awake, in distress mild and uncomfortable HENMT: Head: normocephalic and atraumatic Mouth: Yes moist mucous membranes Teeth and gingiva: dentition normal Eyes: Pupils: Equal, round and reactive pupils present EOM: EOMs intact bilaterally Neck: Neck: full ROM, no lymphadenopathy, trachea midline, supple and no JVD Resp: Effort & Inspection: normal respiratory effort Auscultation: clear to auscultation bilaterally Cardio: Rate: regular rate Rhythm: regular rhythm Peripheral pulses: Peripheral pulses 2+ throughout GI: Inspection: normal to inspection, non-distended, incision (Clean, dry, and intact) and no visible herniation GI Palp: No abdominal tenderness Auscultation: normal bowel sounds Rectal Exam: deferred Other: soft, decreased dist, mild TTP, incision C/D/I Skin: General skin exam: normal color and no rashes or lesions noted Extrem: General: normal to inspection, full ROM, no clubbing, cyanosis or edema, no calf tenderness and no edema Psych: Mental Status: mental status grossly normal Affect: normal affect, Anxious affect present and Irritable affect present Attitude: cooperative Thought process: Normal thought process present Insight: Good insight present (Psych) and Fair insight present (Psych) Judgement: Good judgement present (Psych) and Fair judgement present (Psych) Objective Data Vital Signs Vital Signs: Vital Signs - 24 hr 11/15/19 22:00 11/16/19 06:00 11/16/19 14:00 Temperature 37.2 C 36.7 C 36.8 C Pulse Rate 95 90 94 Respiratory Rate 18 20 16 Blood Pressure 145/88 H 152/92 H 155/85 H Pulse Oximetry 96 96 96 Intake/Output Intake/Output: Intake & Output 11/13/19 11/14/19 11/15/19 11/16/19 23:59 23:59 23:59 23:59 Intake Total 2600 2320 3060 1723 Output Total 020 364 3708 400 Balance 1700 1670 1860 1323 Meds/Results Medications: Active Medications Generic Name Dose Route Start Last Admin Trade Name Freq PRN Reason Stop Dose Admin
[2019-11-16 18:17] LABS: Glucose Point of Care 109 (65-105)
[2019-11-16] MEDS: MELATONIN 5 MG TABLET PO (20:58)
[2019-11-16 22:00] VITALS: BP 175/91; PULSE 94; RESP 18; TEMP 37.2; O2SAT 95
[2019-11-16] MEDS: hydrALAZINE HCL 20 MG/ML VIAL 10 MG IV PUSH (22:05)
[2019-11-16 23:54] LABS: Glucose Point of Care 98 (65-105)
[2019-11-17] MEDS: ONDANSETRON INJ 4 MG/2 ML VIAL IV PUSH ×5 (01:12→21:52)
[2019-11-17] MEDS: HYDROMORPHONE HCL 1 MG/ML INJ IV PUSH ×3 (01:12→09:57)
[2019-11-17] MEDS: LEVOTHYROXINE SODIUM INJ 100 MCG/5 ML VIAL 12.5 MCG IV PUSH (05:51)
[2019-11-17 06:00] VITALS: BP 148/81; PULSE 101; RESP 18; TEMP 37.3; O2SAT 95
[2019-11-17 06:00] LABS: Glucose Point of Care 95 (65-105)
[2019-11-17 08:00] VITALS: PULSE 101; RESP 18; O2SAT 95
[2019-11-17] MEDS: PANTOPRAZOLE 40 MG TABLET PO (09:47)
[2019-11-17] MEDS: calcium polycarbophiL 625 MG TABLET PO (09:47)
[2019-11-17 12:47] LABS: Basophils Absolute Auto 0.1 K/mm3 (0.0-0.1); Basophils Percent Auto 0.5 % (0.2-1.2); Eosinophils Absolute Auto 0.1 K/mm3 (0-0.3); Eosinophils Percent Auto 0.6 % (0-4.4); Hemoglobin 12.4 g/dL (12.0-15.0); Immature Granulocyte Absolute 0.34 K/mm3 (0.00-0.031); Immature Granulocyte Percent A 2.5 % (0-0.5); Lymphocytes Absolute Auto 1.83 K/mm3 (0.9-3.2); Lymphocytes Percent Auto 13.6 % (18.3-44.2); Mean Corpuscular HGB Conc 34.4 g/dl (32-36); Mean Corpuscular Hemoglobin 29.5 pg (26-34); Mean Corpuscular Volume 85.5 fl (80-100); Monocytes Absolute Auto 1.4 K/mm3 (0.1-0.6); Monocytes Percent Auto 10.5 % (2.6-8.5); Neutrophils Absolute Auto 9.7 K/mm3 (1.3-6.7); Neutrophils Percent Auto 72.3 % (45.5-73.1); Platelet Count Result 443 k/mm3 (150-375); Red Blood Count 4.21 M/mm3 (4.2-5.4); Red Cell Distribution Width 12.5 % (11.5-14.5); White Blood Count 13.5 K/mm3 (4.5-10.0)
[2019-11-17 13:04] LABS: Alanine Aminotransferase 17 U/L (4-35); Albumin Level 3.5 g/dL (3.5-5.1); Alkaline Phosphatase 83 U/L (38-126); Aspartate Amino Transferase 19 U/L (14-36); Bilirubin,Total 0.4 mg/dL (0.2-1.3); Blood Urea Nitrogen 10 mg/dL (7-17); Calcium 8.4 mg/dL (8.4-10.2); Carbon Dioxide 26 mmol/L (22-30); Chloride 92 mmol/L (98-107); Estimated CRCL calculation 65 ml/min; Estimated Glomerular Filt Rate > 60; Glucose 103 mg/dL (65-105); Phosphorus 3.2 mg/dL (2.5-4.5); Potassium 3.4 mmol/L (3.4-5.0); Sodium 126 mmol/L (137-145)
--- NOTE | 2019-11-17 13:54 | PM.PNGS ---
Progress Note: A&P Assessment and Plan (1) Small bowel obstruction: Code(s): K56.609 - Unspecified intestinal obstruction, unspecified as to partial versus complete obstruction Status: Acute Assessment and Plan: Better today, seems more alert. We will stop all IV pain medicine and switch t hydrocodone 5/325 for pain. Encourage OOB/IS. I talked to the hospitalist earlier today and we increased the patient's diet and agreed to stop IV pain medicine and Reglan. Due to low sodium will need to do some testing and restrict IV water.. Consider discharge tomorrow if all is improving. I told the patient we want her to walk more and be ready to try to go tomorrow and she seemed amenable to same. Additional Plan Encourage patient to increase her activity Encouraged her to decrease pain medicine that she is using. Increase diet to soft. Subjective Subjective Date/Time Seen: 11/17/19 13:54 Patient is sitting up much more bright today. Has just finished launch. A probably only a corner of her lunch. Has had 1 stool today and was a little bit more solid. Is happy that she is not having frequent loose stools. Last pain medicine was still IV Dilaudid. We will stop that and try p.o. hydrocodone. If she tolerates that hopefully home tonight or tomorrow (however, in discussing with Medicine patient's sodium is low so further testing will be done on this and will try to get this up before discharge) Review of Systems Review of Systems: All systems reviewed & are unremarkable except as noted in HPI and below Constitutional: Constitutional: Reports no additional constitutional complaints, Reports anorexia, Denies chills, Reports fatigue, Denies fever(s), Denies headache(s), Reports lethargy, Denies malaise, Reports poor appetite, Reports weakness, Denies weight gain and Denies weight loss Eyes: Eyes: Reports no additional eye complaints and Denies loss of vision ENT: Reports Normal hearing present, Denies dysphagia, Denies headache(s), Denies hearing loss, Denies sore throat and Reports other (Mucous Membranes moist.) Cardiovascular: Cardiovascular: Reports no additional cardiovascular complaints, Denies chest pain, Denies syncope, Denies irregular heart rhythm, Denies leg edema, Denies palpitations and Denies dyspnea Respiratory: Respiratory: Reports no additional respiratory complaints, Denies chest congestion, Denies cough, Denies pain on inspiration, Denies dyspnea and Denies wheezing Gastrointestinal: Gastrointestinal: Reports as per HPI, Reports no additional gastrointestinal complaints, Reports abdominal pain, Denies bloating, Denies hematochezia, Denies change in bowel habits, Denies change in stool character, Denies constipation, Denies dysphagia, Denies dyspepsia, Denies heartburn, Reports diarrhea, Reports nausea and Denies vomiting Genitourinary: Genitourinary: Denies urinary frequency, Denies dysuria, Denies urinary hesitancy and Denies urinary urgency Musculoskeletal: Musculoskeletal: Denies myalgias, Denies arthralgias, Denies muscle cramps and Reports other (No calf swelling or edema) Integumentary/Breasts: Skin/Breast: Reports system reviewed and no additional complaints, except as docu, Denies non-healing lesions and Denies rash Neurologic: Reports Normal hearing present, Denies syncope, Denies headache(s), Denies loss of vision and Reports weakness Endocrine: Endocrine: Denies change in body appearance, Reports fatigue and Denies palpitations Hematologic/Lymphatic: Hematologic/Lymphatic: Denies easy bleeding, Denies easy bruising and Denies lymphadenopathy Allergic/Immunologic: Allergic/Immunologic: Denies wheezing Exam Const: General: comfortable, no acute distress, well developed, alert and awake HENMT: Head: normocephalic and atraumatic Mouth: Yes moist mucous membranes Teeth and gingiva: dentition normal Eyes: Pupils: Equal, round and reactive pupils present EOM: EOMs intact bilaterally Neck: Neck
--- NOTE | 2019-11-17 14:03 | PM.IMPN ---
Progress Note: A&P Assessment and Plan (1) Small bowel obstruction: Code(s): K56.609 - Unspecified intestinal obstruction, unspecified as to partial versus complete obstruction Status: Acute Assessment and Plan: -----status post adhesiolysis and partial small-bowel resection. Patient was able to tolerate a soft diet today. Continue oral medications and diet advancement. CT 11/12 showed ileus but also shows inflammation in the small and large bowel. Completed zosyn (7 days). No acute abdomen signs and CO2 was normal on BMP this morning. Patient is transitioning to oral pain meds (2) Diarrhea: Code(s): R19.7 - Diarrhea, unspecified Status: Acute Assessment and Plan: -----better today. Likley associated with abx and TPN. Continue Fiber. C diff seems less likely as her white count has not increased, diarrhea is improving, and she is having less abdominal pain. (3) Leukocytosis: Code(s): D72.829 - Elevated white blood cell count, unspecified Status: Acute Assessment and Plan: -----13.5 today. See plan above. No fevers or signs of post op infection. (4) RLS (restless legs syndrome): Code(s): G25.81 - Restless legs syndrome Status: Chronic Assessment and Plan: ------Resume home ropinirole when appropriate. (5) Hypothyroidism: Qualifiers: Hypothyroidism type: unspecified Qualified Code(s): E03.9 - Hypothyroidism, unspecified Code(s): E03.9 - Hypothyroidism, unspecified Status: Chronic Assessment and Plan: ------Continue Levothryoxine, check TSH in the morning (6) Depression: Qualifiers: Depression Type: unspecified Qualified Code(s): F32.9 - Major depressive disorder, single episode, unspecified Code(s): F32.9 - Major depressive disorder, single episode, unspecified Status: Chronic Assessment and Plan: -----home meds resumed (7) Gonorrhea: Code(s): A54.9 - Gonococcal infection, unspecified Status: Acute Assessment and Plan: ------Patient notes she was contacted 11/08 by [facility] regarding her visit 10/27/19 notifying her she tested positive for gonorrhea. She described she was having symptoms of vaginal discharge and pain at that time. Received faxed results from that note oscar positive and gonorrhea equivocal abnormal . She describes no new sexual partners and has been with the same partner for 2 years. Restest for gonorrhea and chlamydia neg. Patient has been on Zosyn (8) Hypophosphatemia: Code(s): E83.39 - Other disorders of phosphorus metabolism Status: Acute Assessment and Plan: -----Resolved. (9) Hyponatremia: Code(s): E87.1 - Hypo-osmolality and hyponatremia Status: Acute Assessment and Plan: -----worsened at 1:26 a.m. today. She has salt-wasting as she has high amount of sodium in her urine. Will fluid restrict her tonight and watch her sodium. Hopefully she can discharge home tomorrow. No neurological deficits noted (10) Hypoglycemia: Code(s): E16.2 - Hypoglycemia, unspecified Status: Acute Assessment and Plan: -----noted after surgery. has been normal since Additional Plan Subjective Date/time seen: 11/17/19 14:03 Interval history: Pt is a 64 y/o female here for SBO now S/P adhesiolysis with partial small bowel resection. Patient was seen today and states she still having some pain 7/10 her abdomen but is feeling better than yesterday. She does not like the Tylenol and is using the Dilaudid. She is eating and drinking okay with some mild pain after eating but she is still able to tolerate solid food. Her diarrhea has improved and now it is soft stools. She denies chest pain, fevers, chills, shortness of breath, leg swelling, or cough. We discussed the plan of transitioning her to oral medications in hopes fo
[2019-11-17 14:37] VITALS: BP 154/79; PULSE 95; RESP 18; TEMP 36.9; O2SAT 97
[2019-11-17] MEDS: POTASSIUM CHLORIDE 20 MEQ TABLET PO (14:37)
[2019-11-17] MEDS: MELATONIN 5 MG TABLET PO (21:52)
[2019-11-17 22:00] VITALS: BP 150/98; PULSE 100; RESP 20; TEMP 36.9; O2SAT 100
[2019-11-18] MEDS: ONDANSETRON INJ 4 MG/2 ML VIAL IV PUSH (02:44)
[2019-11-18 06:00] VITALS: BP 148/90; PULSE 100; RESP 18; TEMP 36.9; O2SAT 100
[2019-11-18] MEDS: LEVOTHYROXINE SODIUM 25 MCG TABLET PO (06:05)
[2019-11-18 06:41] LABS: Hemoglobin 12.8 g/dL (12.0-15.0); Mean Corpuscular HGB Conc 34.6 g/dl (32-36); Mean Corpuscular Hemoglobin 29.5 pg (26-34); Mean Corpuscular Volume 85.3 fl (80-100); Platelet Count Result 463 k/mm3 (150-375); Red Blood Count 4.34 M/mm3 (4.2-5.4); Red Cell Distribution Width 12.2 % (11.5-14.5); White Blood Count 14.2 K/mm3 (4.5-10.0)
[2019-11-18 07:11] LABS: Blood Urea Nitrogen 8 mg/dL (7-17); Calcium 8.8 mg/dL (8.4-10.2); Carbon Dioxide 25 mmol/L (22-30); Chloride 94 mmol/L (98-107); Estimated CRCL calculation 65 ml/min; Estimated Glomerular Filt Rate > 60; Glucose 100 mg/dL (65-105); Potassium 3.5 mmol/L (3.4-5.0); Sodium 129 mmol/L (137-145)
[2019-11-18] MEDS: PANTOPRAZOLE 40 MG TABLET PO (09:24)
[2019-11-18] MEDS: calcium polycarbophiL 625 MG TABLET PO (09:25)
[2019-11-18] MEDS: DIVALPROEX SODIUM 250 MG TAB.ER.24H PO (09:25)
[2019-11-18] MEDS: TOPIRAMATE 100 MG TABLET PO (09:25)
[2019-11-18 09:53] LABS: Add Urine Microscopic? YES; Appearance Urine Clear (Clear); Bilirubin Urine Negative (Negative); Blood Urine 2+ (Negative); Color Urine Straw (Yellow); Glucose Urine UA Negative (Negative); Ketones Urine 1+ mg/dL (Negative); Leukocyte Esterase Ur Negative LEU/UL (Negative); Nitrate Urine Negative (Negative); Protein Urine Negative (Negative); Specific Grav Ur 1.011 (1.001-1.035); Squamous Epithelial Cell Urine Rare /hpf (Few); Urobilinogen Urine Negative mg/dL (<2.0); WBC Urine 0-3 /hpf
[2019-11-18 10:38] LABS: Sodium Urine Random 47 meq/L
[2019-11-18] MEDS: TRAMADOL HCL 50 MG TABLET PO (12:15)
--- NOTE | 2019-11-18 12:26 | PM.PNGS ---
Progress Note: A&P Assessment and Plan (1) Small bowel obstruction: Code(s): K56.609 - Unspecified intestinal obstruction, unspecified as to partial versus complete obstruction Status: Acute Assessment and Plan: doing well, exam benign, nguyen diet, normal bowel fxn, ok to dc from surgical standpoint (2) Leukocytosis: Code(s): D72.829 - Elevated white blood cell count, unspecified Status: Acute Assessment and Plan: ? etiology, abd exam benign, incision looks good, agree c UA, etc Subjective Subjective Date/Time Seen: 11/18/19 12:26 Pt feels much better today. Pt nguyen diet and having normal bowel fxn. Pt reports minimal abd soreness and would like to go home. Review of Systems Constitutional: Constitutional: Reports fatigue, Reports lethargy and Reports weakness Cardiovascular: Cardiovascular: Denies chest pain and Denies palpitations Respiratory: Respiratory: Denies dyspnea Gastrointestinal: Gastrointestinal: Denies abdominal pain, Denies constipation, Denies diarrhea, Denies nausea and Denies vomiting Exam Const: General: no acute distress Resp: Auscultation: clear to auscultation bilaterally Cardio: Rate: regular rate Rhythm: regular rhythm GI: Other: S, sl dist, mahsa TTP, incision C/D/I Objective Data Vital Signs Vital Signs: Vital Signs - 24 hr 11/17/19 14:37 11/17/19 22:00 11/18/19 06:00 Temperature 36.9 C 36.9 C 36.9 C Pulse Rate 95 100 100 Respiratory Rate 18 20 18 Blood Pressure 154/79 H 150/98 H 148/90 H Pulse Oximetry 97 100 100 Intake/Output Intake/Output: Intake & Output 11/15/19 11/16/19 11/17/19 11/18/19 23:59 23:59 23:59 23:59 Intake Total 3060 3265 1230 565 Output Total 1200 950 400 Balance 1860 2315 830 565 Meds/Results Medications: Active Medications Generic Name Dose Route Start Last Admin Trade Name Freq PRN Reason Stop Dose Admin Calcium Polycarbophil 625 mg 11/16/19 10:55 11/18/19 09:25 Fiber Con PO 625 mg QAM GATO Administration Dextrose 12.5 gm 11/11/19 07:39 11/11/19 07:46 Dextrose 50% Syringe IV PUSH 12.5 gm PRN PRN Administration Hypoglycemia Protocol Divalproex Sodium 250 mg 11/18/19 09:00 11/18/19 09:25 Depakote Er PO 250 mg DAILY GATO Administration Glucagon 1 mg 11/11/19 07:39 Glucagon For Inj IM PRN PRN Hypoglycemia Protocol Hydralazine HCl 10 mg 11/12/19 09:52 11/16/19 22:05 Apresoline Hcl Inj IV PUSH 10 mg Q8H PRN Administration systolic >170 Dextrose 1,000 mls @ 100 mls/hr 11/11/19 07:39 Dextrose 5% 1,000 Ml IVPB PRN PRN Hypoglycemia Protocol Dextrose 1,000 mls @ 50 mls/hr 11/12/19 14:59 Dextrose 10% IV CONT .Q20H PRN if PN is interrupted Levothyroxine Sodium 25 mcg 11/18/19 06:30 11/18/19 06:05 Synthroid PO 25 mcg DAILY@0630 GATO Administration Melatonin 5 mg 11/16/19 21:00 11/17/19 21:52 Melatonin PO 5 mg HS GATO Administration Ondansetron HCl 4 mg 11/07/19 23:39 11/18/19 02:44 Zofran Inj IV PUSH 4 mg Q4H PRN Administration Nausea Pantoprazole Sodium 40 mg 11/17/19 09:00 11/18/19 09:24 Protonix PO 40 mg QAM GATO Administration Polyethylene Glycol 17 gm 11/17/19 13:53 Miralax PO QAM PRN Constipation Sumatriptan Succinate 6 mg 11/17/19 14:01 Imitrex SUB-Q ONCE PRN Headache Topiramate 100 mg 11/18/19 09:00 11/18/19 09:25 Topamax PO 100 mg DAILY GATO Administration Tramadol HCl 50 mg 11/18/19 10:05 11/18/19 12:15 Ultram PO 50 mg Q4H PRN Administration Pain Rated 4-6 Zolpidem Tartrate 2.5 mg 11/17/19 13:53 11/17/19 21:52 Ambien PO 2.5 mg HS PRN Administration Insomnia Radiology Results: ITS Impressions NG Tube Placement 11/08/19 09:44 IMPRESSION: 1. Large hiatal hernia with nasogastric tube tip in the hiatal hernia above the diaphragm. I was not able to p
--- NOTE | 2019-11-18 12:45 | PM.DS ---
DS: Admitting Diagnosis Admitting Diagnosis Admitting Diagnosis: Unspecified intestinal obstruction, unspecified as to partial versus complete obstruction DS: Discharge Diagnosis Discharge Diagnosis (1) Small bowel obstruction: Code(s): K56.609 - Unspecified intestinal obstruction, unspecified as to partial versus complete obstruction Status: Acute (2) Diarrhea: Code(s): R19.7 - Diarrhea, unspecified Status: Acute Assessment and Plan: -----better today. Likley associated with abx and TPN. Continue Fiber. C diff seems less likely as her white count has not increased, diarrhea is improving, and she is having less abdominal pain. (3) Leukocytosis: Code(s): D72.829 - Elevated white blood cell count, unspecified Status: Acute (4) RLS (restless legs syndrome): Code(s): G25.81 - Restless legs syndrome Status: Chronic (5) Hypothyroidism: Qualifiers: Hypothyroidism type: unspecified Qualified Code(s): E03.9 - Hypothyroidism, unspecified Code(s): E03.9 - Hypothyroidism, unspecified Status: Chronic (6) Depression: Qualifiers: Depression Type: unspecified Qualified Code(s): F32.9 - Major depressive disorder, single episode, unspecified Code(s): F32.9 - Major depressive disorder, single episode, unspecified Status: Chronic (7) Gonorrhea: Code(s): A54.9 - Gonococcal infection, unspecified Status: Acute Assessment and Plan: ------Patient notes she was contacted 11/08 by [facility] regarding her visit 10/27/19 notifying her she tested positive for gonorrhea. She described she was having symptoms of vaginal discharge and pain at that time. Received faxed results from that note oscar positive and gonorrhea equivocal abnormal . She describes no new sexual partners and has been with the same partner for 2 years. Restest for gonorrhea and chlamydia neg. Patient has been on Zosyn (8) Hypophosphatemia: Code(s): E83.39 - Other disorders of phosphorus metabolism Status: Acute (9) Hyponatremia: Code(s): E87.1 - Hypo-osmolality and hyponatremia Status: Acute (10) Hypoglycemia: Code(s): E16.2 - Hypoglycemia, unspecified Status: Acute DS: Summary Hospital Course Reason for hospitalization: Small-bowel obstruction Hospital Course: Patient is a 64-year-old female who presented to the emergency room for abdominal pain found to have a small-bowel obstruction. White blood cell count 19.5, hemoglobin 15.1, hematocrit 46.4, platelets 276. BMP relatively normal with exception of CO2 21. CT of the abdomen pelvis in the ER showed small-bowel obstruction with thickening of the distal ileum which is likely infectious, inflammatory or less likely ischemia. She also has reactive ascites in her abdomen. Patient was taken to surgery 11/07 for an exploratory laparotomy, lysis of adhesions, and small-bowel resection and removal of food bolus. Patient had a lprolonged postop recovery as she had a lot of pain, nausea, and vomiting. She remains on NG tube for many days. She was given 7 days of Zosyn. Her pathology did not show any evidence of serositis or neoplasm. The patient developed diarrhea with her TPN and Zosyn in both of these were stopped in her diarrhea got better. With that being said, her white blood cell count started increasing towards the end of her stay. She had no signs of infection such as fever, pain, incision site abnormalities, diarrhea, and her UA was negative. No infection suspected. The patient had electrolyte abnormalities that was due to her vomiting and surgery. Her sodium was 129 at discharge but had improved from the days prior. She was told to limit her fluid intake. Her urine sodium had improved, likely etiology was SIADH and she will likely return to normal as time progresses from sx. Overall, the patient improved since admission. Day of discharge
== END 2019-11-18 13:55 | disposition home or self-care (01) | DRG 330 ==
LOC: ANHED 23:22 → ANH3MEDSUR 11-08 00:32
PROVIDERS: Nurse Practitioner Family; Physician Assistant; Surgery; Admitting Provider Family Medicine; Emergency Provider Emergency Medicine; Visit Provider Family Medicine
PROC: 0DB80ZZ Excision of Small Intestine, Open Approach (ICD-10-PCS; CPT 49000; principal; 2019-11-08 13:30)
DX: K56.690 Other partial intestinal obstruction (principal); K52.1 Toxic gastroenteritis and colitis; A54.9 Gonococcal infection, unspecified; E22.2 Syndrome of inappropriate secretion of antidiuretic hormone; T18.3XXA Foreign body in small intestine, initial encounter; K66.0 Peritoneal adhesions (postprocedural) (postinfection); T36.0X5A Adverse effect of penicillins, initial encounter; T50.3X5A Adverse effect of electrolytic, caloric and water-balance agents, initial encounter; E87.6 Hypokalemia; K44.9 Diaphragmatic hernia without obstruction or gangrene; D72.829 Elevated white blood cell count, unspecified; G25.81 Restless legs syndrome; E03.9 Hypothyroidism, unspecified; F32.9 Major depressive disorder, single episode, unspecified; E83.39 Other disorders of phosphorus metabolism; E16.2 Hypoglycemia, unspecified; Z90.710 Acquired absence of both cervix and uterus
CPT/HCPCS: 36415; 74018; 74019; 74177; 80048; 80053; 80076; 81001; 83605; 83690; 83735; 84100; 84300; 84443; 84478; 85025; 85027; 85610; 85730; 87491; 87591; 88307; 96361; 96365; 96366; 96375; 96376; 99285; A9270; C9113; G0378; J0131; J0360; J1170; J1741; J2250; J2270; J2405; J2543; J2765; J3010; J3475; J3480; J7030; J7042; J7050; J7120; Q9967

== ENCOUNTER 2020-02-21 17:13 | Emergency (ER) | payer MEDICARE, SELFPAY ==
--- NOTE | 2020-02-21 18:30 | PC.NURSE ---
called pt twice for triage. pt not found inside or outside of ed. pt's name bracelet found on triage counter
== END 2020-02-21 18:30 | disposition left against medical advice (07) ==
PROVIDERS: PCP Family Medicine
DX: Z53.21 Procedure and treatment not carried out due to patient leaving prior to being seen by health care provider (principal)
CPT/HCPCS: 99199

== ENCOUNTER 2020-03-21 09:31 | Emergency (ER) | payer MEDICARE, OTHER, SELFPAY ==
--- NOTE | 2020-03-21 09:46 | ED.FEMALEGU ---
HPI - Female Genitourinary General Chief complaint: Urogenital-Female Stated complaint: uti symptoms Time Seen by Provider: 03/21/20 09:46 Source: patient and RN notes reviewed History of Present Illness HPI Narrative: Patient is a 64-year-old female who presents the urgent care with complaints of a possible UTI. Patient states her symptoms started within the last few days and she has had UTIs in the past. Denies of any recent UTIs in the last 6 months to 1 year. Reports of burning and urinary spasms with mild low back pain and suprapubic pressure. Denies of any fever, nausea, vomiting. States that she has been taking Azo and the symptoms have improved. Patient also reports of a abdominal hernia in which she is supposed to have it surgically repaired in the coming months. Patient denies of any other acute complaints. No acute distress noted. Patient aware of the plan of care. Some parts of this dictation were generated by voice recognition software and may contain typographical and/or grammatical inaccuracies. Related Data Home Medications Medication Instructions Recorded Confirmed bupropion HCl [Wellbutrin XL] 300 mg PO QAM 11/07/19 11/08/19 divalproex [Depakote ER] 250 mg PO DAILY 11/07/19 11/08/19 levothyroxine 25 mcg PO DAILY 11/07/19 11/08/19 ropinirole 1,000 mg PO DAILY 11/07/19 11/08/19 topiramate [Topamax] 100 mg PO DAILY 11/07/19 11/08/19 valacyclovir [Valtrex] 1,000 mg PO DAILY 11/07/19 11/08/19 sumatriptan succinate [Imitrex 6 mg SUBCUT ONCE PRN 11/08/19 11/08/19 STATdose Pen] Allergies Allergy/AdvReac Type Severity Reaction Status Date / Time codeine Allergy Severe Gastrointestinal Verified 03/21/20 09:52 Upset Sulfa (Sulfonamide Allergy Intermediate Hives Verified 03/21/20 09:52 Antibiotics) Review of Systems Review of Systems: Narrative: CONSTITUTIONAL: Denies fever, chills, or sweats. EYES: Denies visual changes, redness, or discharge. ENT: Denies rhinorrhea, congestion, sore throat, or otalgia. CARDIOVASCULAR: Denies chest pain, palpitations, or edema. RESPIRATORY: Denies cough or dyspnea. GASTROINTESTINAL: Denies abdominal pain, nausea, vomiting, or diarrhea. Reports of suprapubic pressure GENITOURINARY: Reports of dysuria, spasms SKIN: Denies rash or itching. MUSCULOSKELETAL: Reports of low back pain NEUROLOGIC: Denies headache, numbness, or weakness. All other systems reviewed are negative, except as documented in HPI. [facility] Past Medical History Medical History (Updated 03/21/20 @ 10:09 by LA Hayden) Depression Hypothyroidism Migraine headache RLS (restless legs syndrome) Surgical History Surgical History (Updated 11/20/19 @ 11:01 by Juani Mendez) History of exploratory laparotomy lysis of adhesions, small-bowel resection with removal of food bezoar 11/08/19 History of hysterectomy Family History Family History Other Unknown family medical history Social History Social History Smoking status: Never smoker Alcohol intake: never Substance use: never Substance use type: does not use Gender identity (if verbalized by the patient): Female Spiritual care concerns: No Comments At the time of my signature, I reviewed and agree with the nursing past medical, surgical, social, and family history. There is no relevant family history pertinent to the patient complaint. Exam Narrative: Exam Narrative: GENERAL: This is a well-nourished, well-developed patient, in no apparent distress. HEAD: normocephalic, atraumatic. EYES: PERRL. Sclera clear/white. Vision is grossly intact. EARS: External ears normal NOSE: External nose normal with no obvious nasal discharge, nares without redness, no rhinorrhea. THROAT: Mucous membranes moist NECK: Neck supple GASTROINTESTINAL: Abdomen soft, mild suprapubic tenderness, nondistended. Notable hernia SKIN: w
[2020-03-21 09:51] VITALS: BP 135/73; PULSE 88; RESP 16; TEMP 36.3; O2SAT 98
== END 2020-03-21 10:16 | disposition home or self-care (01) ==
PROVIDERS: Emergency Provider Nurse Practitioner Family; PCP Family Medicine
DX: N39.0 Urinary tract infection, site not specified (principal); E03.9 Hypothyroidism, unspecified; G25.81 Restless legs syndrome; F32.9 Major depressive disorder, single episode, unspecified
CPT/HCPCS: 81003; 87077; 87086; 87088; 87186; 99213; G0463

== ENCOUNTER 2020-06-29 10:08 | Emergency (ER) | payer MEDICARE, OTHER, SELFPAY ==
[2020-06-29 10:13] VITALS: BP 145/81; PULSE 92; RESP 12; TEMP 36.4; O2SAT 99
--- NOTE | 2020-06-29 10:13 | ED.FEMALEGU ---
HPI - Female Genitourinary General Chief complaint: Urogenital-Female Stated complaint: POS UTI Time Seen by Provider: 06/29/20 10:17 Source: patient and RN notes reviewed History of Present Illness HPI Narrative: Patient is a 64-year-old female who presents the urgent care with complaints of a possible UTI. Patient states that symptoms started yesterday with frequency, urgency, suprapubic pressure, bladder spasms and dysuria. Patient denies of any frequent history of UTIs but has had them in the past. However, it is noted in the patient's chart that she was on Macrobid in March. Denies of any fever, chills, nausea, vomiting, abdominal pain, back pain, blood in the urine. States that she has been taking Azo and drinking a lot of water. No other acute complaints. No acute distress noted. Patient aware of the plan of care. Some parts of this dictation were generated by voice recognition software and may contain typographical and/or grammatical inaccuracies. Related Data Home Medications Medication Instructions Recorded Confirmed bupropion HCl [Wellbutrin XL] 300 mg PO QAM 11/07/19 06/29/20 divalproex [Depakote ER] 250 mg PO DAILY 11/07/19 06/29/20 levothyroxine 25 mcg PO DAILY 11/07/19 06/29/20 topiramate [Topamax] 100 mg PO DAILY 11/07/19 06/29/20 ropinirole 1 mg PO PRN 06/29/20 06/29/20 Allergies Allergy/AdvReac Type Severity Reaction Status Date / Time codeine Allergy Severe Gastrointestinal Verified 06/29/20 10:16 Upset Sulfa (Sulfonamide Allergy Intermediate Hives Verified 06/29/20 10:16 Antibiotics) Review of Systems Review of Systems: Narrative: CONSTITUTIONAL: Denies fever, chills, or sweats. EYES: Denies visual changes, redness, or discharge. ENT: Denies rhinorrhea, congestion, sore throat, or otalgia. CARDIOVASCULAR: Denies chest pain, palpitations, or edema. RESPIRATORY: Denies cough or dyspnea. GASTROINTESTINAL: Denies abdominal pain, nausea, vomiting, or diarrhea. GENITOURINARY: Reports of dysuria, frequency, urgency, suprapubic pressure and spasms SKIN: Denies rash or itching. MUSCULOSKELETAL: Denies back pain, joint pain, or myalgia. NEUROLOGIC: Denies headache, numbness, or weakness. All other systems reviewed are negative, except as documented in HPI. [facility] Past Medical History Medical History (Updated 06/29/20 @ 10:26 by LA Hayden) Depression Hypothyroidism Migraine headache RLS (restless legs syndrome) Surgical History Surgical History (Updated 11/20/19 @ 11:01 by Juani Mendez) History of exploratory laparotomy lysis of adhesions, small-bowel resection with removal of food bezoar 11/08/19 History of hysterectomy Family History Family History Other Unknown family medical history Social History Social History Smoking status: Never smoker Alcohol intake: never Substance use: never Substance use type: does not use Gender identity (if verbalized by the patient): Female Spiritual care concerns: No Comments At the time of my signature, I reviewed and agree with the nursing past medical, surgical, social, and family history. There is no relevant family history pertinent to the patient complaint. Exam Narrative: Exam Narrative: GENERAL: This is a well-nourished, well-developed patient, in no apparent distress. HEAD: normocephalic, atraumatic. EYES: PERRL. Sclera clear/white. Vision is grossly intact. EARS: External ears normal NOSE: External nose normal with no obvious nasal discharge, nares without redness, no rhinorrhea. THROAT: Mucous membranes moist NECK: Neck supple GASTROINTESTINAL: Abdomen soft, moderate suprapubic tenderness, nondistended. SKIN: warm, intact with no suspicious lesions or rash, good texture and turgor. NEURO: awake, alert, and oriented to person, place and time. There were no obvious focal neurologic abnormalities. E
[2020-06-29 10:27] VITALS: BP 145/81; PULSE 92; RESP 12; TEMP 36.4; O2SAT 99
== END 2020-06-29 10:30 | disposition home or self-care (01) ==
PROVIDERS: Emergency Provider Nurse Practitioner Family
DX: N39.0 Urinary tract infection, site not specified (principal); F32.9 Major depressive disorder, single episode, unspecified; E03.9 Hypothyroidism, unspecified; G25.81 Restless legs syndrome
CPT/HCPCS: 81003; 87077; 87086; 87088; 87186; 99213; G0463

== ENCOUNTER 2023-01-25 10:12 | Emergency (ER) | payer MEDICARE, OTHER, SELFPAY ==
[2023-01-25 10:25] VITALS: BP 127/74; PULSE 78; RESP 16; TEMP 36.3; O2SAT 100
[2023-01-25] MEDS: LIDOCAINE HCL 1% LOCAL INJ 2 ML AMPUL 4 ML INFILTRATE (10:48)
--- NOTE | 2023-01-25 11:04 | ED.LOWEXIN ---
HPI - Extremity Injury (Lower) General Chief Complaint: Extremity Injury, Lower Stated Complaint: Left Knee Injury Time Seen by Provider: 01/25/23 10:30 Source: patient Mode of arrival: ambulatory Limitations: no limitations History of Present Illness HPI Narrative: Dorothea is a 67-year-old female patient presenting to the clinic today with complaints of a left knee laceration and a nose injury after falling into a ladder. She reports that she was caring the ladder and tripped and fell in some walk and her face hit the ladder and her left knee hit the rock. She has a flap laceration to the left knee with the bleeding controlled. Did have some slight epistaxis after hitting her nose on the ladder. Has some dried blood in her left nare. She denies any loss of consciousness or neck pain. Patient is currently taking chemo for lung cancer. Related Data Home Medications Medication Instructions Recorded Confirmed bupropion HCl 300 mg 24 hr tablet, 300 mg PO QAM 11/07/19 01/25/23 extended release (Wellbutrin XL) divalproex 250 mg tablet,extended 250 mg PO DAILY 11/07/19 01/25/23 release 24 hr (Depakote ER) levothyroxine 25 mcg tablet 25 mcg PO DAILY 11/07/19 01/25/23 topiramate 100 mg tablet (Topamax) 100 mg PO DAILY 11/07/19 01/25/23 Allergies Allergy/AdvReac Type Severity Reaction Status Date / Time codeine Allergy Severe Gastrointestinal Verified 01/25/23 10:32 Upset Sulfa (Sulfonamide Allergy Intermediate Hives Verified 01/25/23 10:32 Antibiotics) Review of Systems Review of Systems: Pertinent positives per HPI. Patient denies any fever, chills, rash, headache, visual changes, dizziness, cough, shortness of breath, chest pain, palpitations, nausea, vomiting, diarrhea, constipation, abdominal pain, or any urinary issues. [facility] Past Medical History Medical History Depression Hypothyroidism Migraine headache RLS (restless legs syndrome) Surgical History Surgical History History of exploratory laparotomy lysis of adhesions, small-bowel resection with removal of food bezoar 6/5/20 History of hysterectomy Family History Family History Other Unknown family medical history Social History Social History Smoking status: Never smoker Alcohol intake: never Substance use: never Substance use type: does not use Gender identity (if verbalized by the patient): Female Spiritual care concerns: No Comments At the time of my signature, I reviewed and agree with the nursing past medical, surgical, social, and family history. There is no relevant family history pertinent to the patient complaint. Exam Narrative: General: Well-developed, thin and frail-appearing,, in no apparent distress Head: Normocephalic, atraumatic Eyes: Pupils equally round and reactive to light bilaterally, EOM intact, sclera and conjunctive clear, no discharge, lids normal Ears: TMs intact and clear, ear canals clear, no drainage, grossly hearing normal. Nose: Nares patent bilaterally, no discharge, dry blood noted in the left nare, no inflammation, no sinus tenderness, no tenderness to palpation over the nasal bone, no deformity palpable over the nasal bone. Mouth: Oral pharynx without lesions or masses, good dentition, MMM. Neck: Supple, trachea midline, no enlargement of anterior or posterior cervical nodes, no thyroid masses or goiter palpable. Cardio: Regular rate and rhythm, s1 and s2 normal, no murmur appreciated. Resp: Clear to auscultation bilaterally, no rhonchi, rales, wheezing or rubs Musculoskeletal: No deformity, tender to palpation over wound of left anterior knee but denies pain with range of motion, grossly normal range of motion, muscle strength strong
--- NOTE | 2023-01-25 11:09 | PC.NURSE ---
+PMS POST BHUPENDRA AND KNEE IMMOBILIZER APPLICATION
== END 2023-01-25 11:10 | disposition home or self-care (01) ==
PROVIDERS: Emergency Provider Nurse Practitioner Family
DX: S81.012A Laceration without foreign body, left knee, initial encounter (principal); W01.198A Fall on same level from slipping, tripping and stumbling with subsequent striking against other object, initial encounter; S00.33XA Contusion of nose, initial encounter; E03.9 Hypothyroidism, unspecified; G25.81 Restless legs syndrome; F32.A Depression, unspecified; C34.90 Malignant neoplasm of unspecified part of unspecified bronchus or lung; Z79.60 Long term (current) use of unspecified immunomodulators and immunosuppressants
CPT/HCPCS: 12004; 99212; G0463; L1830